=== PATIENT | male | born 1945 | race Caucasian/White ===

== ENCOUNTER 2017-11-18 19:10 | Emergency (ER) | payer MEDICARE, BC ==
[~2017-11-18] VITALS: Ht 182.9 cm; Wt 117.0 kg
[~2017-11-18 19:10] MED LIST: ACETAMINOPHEN325 M1 PO; ACIPHEX 20 MG T20 MG PO; ALLOPURINOL 30300 M1 PO; AMITRIPTYLINE H10 M3 PO; ARIXTRA; ARIXTRA SQ; ASPIRIN EC325 M1 PO; ASPIRIN EC325 MG PO; ASPIRIN325; ASPIRIN325 PO; ASPIRIN81 M2; B12 PO; CALCIUM 500 +1 EAC5 PO; CALCIUM CITRAT1 EAC4 PO; CASODEX 50 MG T50 M1 PO; CATAPRES-TTS 10.1 MG TD; CENTRUM SILVER1 EAC2 PO; CEPACOL SORE T1 EAC2 MM; CLONIDINE HCL0.1 MG PO; COLACE100 MG PO; CRESTOR10 MG PO; CRESTOR20 MG PO; CRESTOR5 MG PO; CYMBALTA30 MG PO; DEPO-PROVER150 MG/M1 INJECTION; DEPO-PROVERA; DITROPAN XL10 M1 PO; ELIQUIS5 MG PO; FISH OIL 1,001000 M1 PO; FLEXERIL PO; FLONASE 0.05%50 MCG NASAL; FOLBIC RF TABL1 EACH PO; LISINOPRIL20 MG PO; LISINOPRIL5 MG PO; LIVALO2 MG PO; LUNESTA2 MG PO; LUPRON DEPOT11.25 MG IM; LUPRON DEPOT45 MG; LUPRON IJ; MACROBID 100 M100 M1 PO; MIRALAX17 GM PO; MIRAPEX1 MG PO; MORPHINE SULFAT15 M3 PO; MORPHINE SULFAT30 M1 PO; MS CONTIN15 MG PO; MULTAQ400 MG PO; MULTIVITAMINS1 EAC7 PO; NEURONTIN 300300 M1 PO; NITROSTAT0.4 MG SL; NORVASC2.5 MG PO; OMEPRAZOLE40 MG PO; OXYCODONE HCL 55 MG PO; OXYIR5 MG; PAXIL20 MG PO; PERCOCET 10-321 EACH PO; PERCOCET 5-3251 EACH; PERCOCET 5-3251 EACH PO; PERCOCET PO; PRADAXA150 MG PO; PROSTATE CANCER; REMERON15 MG PO; ROUVASTATIN PO; RYTHMOL150 MG PO; SORINE 80 MG TA80 M1 PO; STOOL SOFTENER1 EAC2 PO; TOPROL XL25 MG PO; TRAMADOL HCL50 MG PO; TYLENOL325 MG PO; VITAMIN B12 PO; VITAMIN D1000 UNI1 PO; WARFARIN PO; XARELTO10 MG PO; XARELTO15 MG PO; XARELTO20 MG PO; [UNRECOGNIZED DRUG - OTHER] PO
[2017-11-18] MEDS ORDERED: KEFLEX500 M1 PO ×2 (19:26→20:33)
[2017-11-18] MEDS ORDERED: XARELTO20 MG PO (19:31)
[2017-11-18] MEDS ORDERED: CATAPRES0.1 MG PO (19:32)
[2017-11-18] MEDS ORDERED: IBUPROFEN 400400 M2 PO (19:32)
[2017-11-18] MEDS ORDERED: METFORMIN HCL500 MG PO (19:33)
[2017-11-18] MEDS ORDERED: LYRICA 75 MG CA75 MG PO (19:33)
[2017-11-18 20:49] VITALS: BP 157/78
== END 2017-11-18 20:50 | disposition home or self-care (01) ==
LOC: M.ERS 19:10
DX: S61.217A Laceration without foreign body of left little finger without damage to nail, initial encounter (principal); I10 Essential (primary) hypertension; M19.90 Unspecified osteoarthritis, unspecified site; G47.30 Sleep apnea, unspecified; K21.9 Gastro-esophageal reflux disease without esophagitis; M10.9 Gout, unspecified; Z87.891 Personal history of nicotine dependence; Z88.8 Allergy status to other drugs, medicaments and biological substances; Z96.642 Presence of left artificial hip joint; Z90.49 Acquired absence of other specified parts of digestive tract; Z96.651 Presence of right artificial knee joint; W26.8XXA Contact with other sharp object(s), not elsewhere classified, initial encounter; Y93.89 Activity, other specified; Y92.89 Other specified places as the place of occurrence of the external cause; Y99.8 Other external cause status

== ENCOUNTER → 2017-12-12 | Outpatient (CLI) | payer MEDICARE, BC ==
[~2017-12-12] MED LIST changes: +CATAPRES0.1 MG PO; +IBUPROFEN 400400 M2 PO; +KEFLEX500 M1 PO; +LYRICA 75 MG CA75 MG PO; +METFORMIN HCL500 MG PO
== END ==
LOC: M.ULTRA 07:34
DX: S39.81XA Other specified injuries of abdomen, initial encounter (principal); N28.1 Cyst of kidney, acquired; I10 Essential (primary) hypertension; I48.91 Unspecified atrial fibrillation; G47.33 Obstructive sleep apnea (adult) (pediatric); X58.XXXA Exposure to other specified factors, initial encounter; Y93.89 Activity, other specified; Y92.89 Other specified places as the place of occurrence of the external cause; Y99.8 Other external cause status; Z90.49 Acquired absence of other specified parts of digestive tract

== ENCOUNTER → 2018-07-17 | Outpatient (CLI) | payer BC ==
--- NOTE | 2018-07-17 15:49 | 2DMMODE ---
[place] [address] 2 D/M-MODE ECHOCARDIOGRAM Name: RADNEE HUMPHRIES Room: [facility]#: [id number] Admission: 07/17/18 Attend Phys: Katy Cortez Discharge: Date of : 41 Date of Service: 07/17/18 1548 Report #: [id number] THIS REPORT FOR: //name// APPROVED REPORT Study performed: 07/17/2018 13:50:00 EXAM: Comprehensive 2D, Doppler, and color-flow Echocardiogram Patient Location: Out-Patient BSA: 2.42 HR: 63 bpm BP: 132/52 mmHg Other Information Study Quality: Fair Indications Atrial Fibrillation Elevated BNP 2D Dimensions IVSd: 12.82 (7-11mm) LVOT Diam: 21.71 (18-24mm) LVDd: 51.25 mm PWd: 11.36 (7-11mm) Ascending Ao: 32.66 (22-36mm) LVDs: 33.40 (25-40mm) Aortic Root: 27.87 mm Volumes Left Atrial Volume (Systole) LA ESV Index: 23.70 mL/m2 Aortic Valve AoV Peak Willis.: 1.73 m/s AO Peak Gr.: 11.96 mmHg LVOT Max P.99 mmHg AO Mean Gr.: 6.50 mmHg LVOT Mean P.90 mmHg LVOT Max V: 1.00 m/s AO V2 VTI: 35.94 cm LVOT Mean V: 0.63 m/s NIGEL (VTI): 2.56 cm2 LVOT V1 VTI: 24.82 cm Mitral Valve MV Decel. Time: 169.90 ms MV E Max Willis.: 1.04 m/s MV PHT: 49.27 ms MVA (PHT): 4.47 [place]2 [place] [address] 2 D/M-MODE ECHOCARDIOGRAM Name: RANDEE HUMPHRIES Room: [facility]#: [id number] Admission: 07/17/18 Attend Phys: Katy Cortez Discharge: Date of : 41 Date of Service: 07/17/18 1548 Report #: [id number] TDI E/Lateral E': 10.40 E/Medial E': 11.56 Medial E' Willis.: 0.09 m/s Lateral E' Willis.: 0.10 m/s Pulmonary Valve PV Peak Willis.: 1.02 m/s PV Peak Gr.: 4.17 mmHg Tricuspid Valve RAP Estimate: 5.00 mmHg TR Peak Gr.: 28.92 mmHg RVSP: 33.92 mmHg PA Pressure: 33.92 mmHg Left Ventricle The left ventricle is normal size. There is normal LV segmental wall motion. Mild concentric left ventricular hypertrophy. Left ventricular systolic function is normal. The left ventricular ejection fraction is within the normal range. LVEF is 55-60%. The left ventricular diastolic function is normal. Right Ventricle The right ventricle is normal size. The right ventricular systolic function is normal. Atria The left atrium size is normal. The right atrium size is normal. Aortic Valve The Aortic valve is sclerotic. No aortic regurgitation is present. There is no aortic valvular stenosis. Mitral Valve Mitral valve leaflets are mildly thickened. Mild mitral regurgitation. No evidence of mitral valve stenosis. Tricuspid Valve The tricuspid valve is normal in structure. Mild tricuspid regurgitation. estimated pa pressure 40 mm Hg Pulmonic Valve Pulmonic valve is not well visualized. There is no pulmonic valvular regurgitation[place] [address] 2 D/M-MODE ECHOCARDIOGRAM Name: RANDEE HUMPHRIES Room: [facility]#: [id number] Admission: 07/17/18 Attend Phys: Katy Cortez Discharge: Date of : 41 Date of Service: 07/17/18 1548 Report #: [id number] The aortic root is normal in size. IVC is normal in size and collapses >50% with inspiration. Pericardium There is no pericardial effusion. <Conclusion> Mild concentric left ventricular hypertrophy. LVEF is 55-60%. The Aortic valve is sclerotic. Mild tricuspid regurgitation. estimated pa pressure 40 mm Hg Mild mitral regurgitation. <ELECTRONICALLY SIGNED> By: Luis Castillo MD, [facility] 07/17/18 1548 1548 1548 Luis Castillo MD, FAC /INF
== END ==
LOC: M.CRD 13:39
DX: I08.1 Rheumatic disorders of both mitral and tricuspid valves (principal); I48.91 Unspecified atrial fibrillation

== ENCOUNTER 2018-10-13 09:29 | Emergency (ER) | payer BC ==
[~2018-10-13] VITALS: Ht 180.3 cm; Wt 131.2 kg
[2018-10-13 09:49] LABS: ABSOLUTE EOSINOPHILS 0.2 thou/uL (0.0-0.7); ABSOLUTE LYMPHOCYTES 1.3 thou/uL (0.8-5.3); ABSOLUTE MONOCYTES 0.6 thou/uL (0.0-1.2); ABSOLUTE NEUTROPHILS 5.6 thou/uL (1.6-8.1); BASOPHILS 0.5 %; HEMATOCRIT 38.9 % (42.0-52.0); HEMOGLOBIN 12.7 gm/dL (14.0-18.0); LYMPHOCYTES 16.4 %; MCHC 32.6 g/dL (28.0-37.0); MCV 89.1 fL (80.0-100.0); MONOCYTES 8.4 %; NUCLEATED RBCS 0 /100WBC; PLATELET COUNT* 167 thou/uL (150-400); POLYS 72.7 %; RBC 4.37 mil/uL (4.50-6.00); WBC 7.6 thou/uL (4.0-11.0)
[2018-10-13 10:01] LABS: ANION GAP 9 mmol/L (7-16); BUN 10 mg/dL (7-18); CALCIUM 8.8 mg/dL (8.5-10.1); CHLORIDE 100 mmol/L (98-107); CO2 29 mmol/L (21-32); CREATININE 0.8 mg/dL (0.6-1.3); GLUCOSE 158 mg/dL (70-99); POTASSIUM 4.3 mmol/L (3.5-5.1); SODIUM 138 mmol/L (136-145)
[2018-10-13 10:12] LABS: APTT 40.1 Seconds (25.0-31.3); INR 1.4; PROTIME 14.5 Seconds (9.20-11.50)
[2018-10-13 10:15] LABS: ALBUMIN 3.5 g/dL (3.4-5.0); ALKALINE PHOSPHATASE 86 U/L (46-116); CK-MB MASS 1.7 ng/mL (<0.5-3.6); LIPASE 85 U/L (73-393); MAGNESIUM 1.9 mg/dL (1.8-2.4); NT-PRO BRAIN NAT PEPTIDE 2293 pg/mL (<300); SGOT 23 U/L (15-37); SGPT 23 U/L (30-65); TOTAL BILIRUBIN 0.5 mg/dL (<0.1-1.0); TOTAL PROTEIN 7.1 g/dL (6.4-8.2); TROPONIN-I LEVEL <0.06 ng/mL (<0.06)
[2018-10-13 12:18] VITALS: BP 146/92
--- NOTE | 2018-10-13 15:22 | EKG ---
[place] [address] ELECTROCARDIOGRAM REPORT Name: RANDEE HUMPHRIES Room: [facility]#: [id number] Admission: 10/13/18 Attend Phys: Discharge: 10/13/18 Date of : 41 Report #: [id number] THIS REPORT FOR: //name// 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 : 1945 Requested By: Sean Robb Order Number: [id number] MD: Luis Castillo Measurements Intervals [place] Rate: 61 P: [place]: QRS: 27 QRSD: 86 T: QT: 459 QTc: 463 Interpretive Statements Atrial fibrillation Nonspecific T abnormalities, lateral leads Baseline wander in lead(s) III Compared to ECG 12/18/2016 07:17:03 T-wave abnormality now present Electronically Signed On 10-13-2018 15:22:03 CDT by Luis Castillo [email or web address] <ELECTRONICALLY SIGNED> By: Luis Castillo MD, [facility] 10/13/18 1522 0934 Luis Castillo MD, [facility] /EPI
== END 2018-10-13 12:20 | disposition home or self-care (01) ==
LOC: M.ERS 09:29
PROVIDERS: Family Medicine
DX: R07.89 Other chest pain (principal); I10 Essential (primary) hypertension; M19.90 Unspecified osteoarthritis, unspecified site; I48.0 Paroxysmal atrial fibrillation; K21.9 Gastro-esophageal reflux disease without esophagitis; M10.9 Gout, unspecified; G47.30 Sleep apnea, unspecified; M54.9 Dorsalgia, unspecified; G89.29 Other chronic pain; Z96.642 Presence of left artificial hip joint; Z85.46 Personal history of malignant neoplasm of prostate; Z90.49 Acquired absence of other specified parts of digestive tract; Z87.891 Personal history of nicotine dependence; Z88.1 Allergy status to other antibiotic agents; Z96.653 Presence of artificial knee joint, bilateral

== ENCOUNTER → 2018-10-19 | Outpatient (CLI) | payer BC ==
[2018-10-19] VITALS (7 sets, daily range): BP systolic 132–158; BP diastolic 49–79
[~2018-10-19] MED LIST changes: +IRON325 PO
[2018-10-19 10:29] LABS: HEMATOCRIT 40.2 % (42.0-52.0); HEMOGLOBIN 13.2 gm/dL (14.0-18.0); MCH 29.2 pg (26.0-34.0); MCHC 32.9 g/dL (28.0-37.0); MCV 88.7 fL (80.0-100.0); MPV 8.9 fl. (7.2-11.1); RBC 4.53 mil/uL (4.50-6.00); WBC 7.5 thou/uL (4.0-11.0)
[2018-10-19 10:37] LABS: CALCIUM 8.8 mg/dL (8.5-10.1); CREATININE 0.8 mg/dL (0.6-1.3); POTASSIUM 4.6 mmol/L (3.5-5.1)
[2018-10-19 10:38] LABS: APTT 32.2 Seconds (25.0-31.3); INR 1.1; PROTIME 11.3 Seconds (9.20-11.50)
[2018-10-19 10:41] LABS: ALBUMIN 3.8 g/dL (3.4-5.0); TOTAL BILIRUBIN 0.4 mg/dL (<0.1-1.0); TOTAL PROTEIN 7.4 g/dL (6.4-8.2)
--- NOTE | 2018-10-19 13:06 | EKG ---
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: : 1945 Requested By: Cas Khouyr Order Number: [id number] Reading MD: Cas Khoury Measurements Intervals [place] Rate: 63 P: -33 LA: 87 QRS: 3 QRSD: 103 T: 32 QT: 471 QTc: 483 Interpretive Statements Sinus rhythm Atrial premature complex Short LA interval Nonspecific T-wave flattening Compared to ECG 10/13/2018 09:34:31 Atrial premature complex(es) now present Short LA interval now present Atrial fibrillation no longer present T-wave abnormality no longer present Electronically Signed On 10-19-2018 13:05:46 CDT by Cas Khoury [email or web address] <ELECTRONICALLY SIGNED> By: Cas Khoury MD, FAC 10/19/18 1305 1112 1112 Cas Khoury MD, [facility] /EPI
--- NOTE | 2018-10-20 08:49 | CARD ---
[address] [address] CARDIAC CATH REPORT Name: RANDEE HUMPHRIES [place] Room: [facility]#: [id number] Admission: 10/19/18 Attend Phys: Cas Khoury MD Discharge: Date of : 41 Report #: [id number] THIS REPORT FOR: //name// CC: Liang Khoury CARDIAC PROCEDURE INDICATION: Persistent atrial fibrillation. PROCEDURE: DC cardioversion. PROCEDURE DESCRIPTION: After informed consent was obtained, the patient was brought to the cardiac holding area. The patient was given intravenous Versed and fentanyl for conscious sedation. Once the patient was adequately sedated, he received a single biphasic shock of 300 joules. The patient remained in atrial fibrillation. The patient received a second biphasic shock of 360 joules converting to normal sinus rhythm. The patient tolerated the procedure well and without complication. IMPRESSION: 1. Persistent atrial fibrillation. 2. Successful direct current cardioversion to normal sinus rhythm. <ELECTRONICALLY SIGNED> By: Cas Khoury MD, FACC 10/20/18 0849 1319 0631Micmahad Khoury MD, FACC /nt
== END | disposition home or self-care (01) ==
LOC: M.CL 10:04 → M.CRD 11:30 → M.CL 11:30
PROVIDERS: Internal Medicine Cardiovascular Disease
DX: I48.1 Persistent atrial fibrillation (principal); I10 Essential (primary) hypertension; Z98.890 Other specified postprocedural states; Z86.73 Personal history of transient ischemic attack (TIA), and cerebral infarction without residual deficits; Z86.711 Personal history of pulmonary embolism; Z79.01 Long term (current) use of anticoagulants; Z79.899 Other long term (current) drug therapy; Z88.8 Allergy status to other drugs, medicaments and biological substances

== ENCOUNTER 2018-10-25 17:53 | Emergency (ER) | payer BC ==
[~2018-10-25] VITALS: Ht 180.3 cm; Wt 126.1 kg
[2018-10-25 19:18] LABS: ABSOLUTE BASOPHILS 0.1 thou/uL (0.0-0.2); ABSOLUTE EOSINOPHILS 0.1 thou/uL (0.0-0.7); ABSOLUTE LYMPHOCYTES 2.1 thou/uL (0.8-5.3); ABSOLUTE MONOCYTES 0.7 thou/uL (0.0-1.2); ABSOLUTE NEUTROPHILS 4.2 thou/uL (1.6-8.1); BASOPHILS 0.7 %; EOSINOPHILS 2.1 %; HEMATOCRIT 37.4 % (42.0-52.0); HEMOGLOBIN 12.3 gm/dL (14.0-18.0); LYMPHOCYTES 28.7 %; MCH 29.3 pg (26.0-34.0); MCV 88.8 fL (80.0-100.0); MONOCYTES 10.2 %; MPV 8.7 fl. (7.2-11.1); NUCLEATED RBCS 0 /100WBC; PLATELET COUNT* 188 thou/uL (150-400); POLYS 58.3 %; RBC 4.21 mil/uL (4.50-6.00); RDW-CV 15.9 % (10.5-14.5); WBC 7.2 thou/uL (4.0-11.0)
[2018-10-25 19:26] LABS: ANION GAP 9 mmol/L (7-16); BUN 18 mg/dL (7-18); CALCIUM 8.3 mg/dL (8.5-10.1); CHLORIDE 105 mmol/L (98-107); CO2 27 mmol/L (21-32); CREATININE 0.8 mg/dL (0.6-1.3); GLUCOSE 150 mg/dL (70-99); POTASSIUM 4.2 mmol/L (3.5-5.1); SODIUM 141 mmol/L (136-145)
[2018-10-25 19:35] LABS: ALBUMIN 3.2 g/dL (3.4-5.0); ALKALINE PHOSPHATASE 81 U/L (46-116); SGOT 38 U/L (15-37); SGPT 27 U/L (30-65); TOTAL BILIRUBIN 0.3 mg/dL (<0.1-1.0); TOTAL PROTEIN 6.6 g/dL (6.4-8.2); TROPONIN-I LEVEL <0.06 ng/mL (<0.06)
[2018-10-25 19:44] VITALS: BP 139/66
--- NOTE | 2018-10-26 11:35 | EKG ---
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1945 Requested By: Matthew Diaz Order Number: [id number] MD: Rick Mares Measurements Intervals [place] Rate: 72 P: [place]: QRS: 0 QRSD: 94 T: 18 QT: 449 QTc: 492 Interpretive Statements Atrial fibrillation Borderline ST elevation, lateral leads Borderline prolonged QT interval Compared to ECG 10/19/2018 11:12:44 ST (T wave) deviation now present Sinus rhythm no longer present Atrial premature complex(es) no longer present Short [place] interval no longer present T-wave abnormality no longer present Electronically Signed On 10-26-2018 11:35:17 CDT by Rick Mares [email or web address] <ELECTRONICALLY SIGNED> By: Rick Mares MD, [facility] 10/26/18 1135 1828 1828 Rick Mares MD, FAC /EPI
== END 2018-10-25 19:45 | disposition home or self-care (01) ==
LOC: M.ERS 17:53
PROVIDERS: Physician Assistant
DX: R60.0 Localized edema (principal); I48.91 Unspecified atrial fibrillation; I10 Essential (primary) hypertension; M19.90 Unspecified osteoarthritis, unspecified site; I48.0 Paroxysmal atrial fibrillation; M10.9 Gout, unspecified; Z96.642 Presence of left artificial hip joint; Z90.49 Acquired absence of other specified parts of digestive tract; Z96.652 Presence of left artificial knee joint; Z87.891 Personal history of nicotine dependence; Z88.8 Allergy status to other drugs, medicaments and biological substances

== ENCOUNTER → 2018-11-16 | Outpatient (CLI) | payer BC ==
[~2018-11-16] MED LIST changes: +AUGMENTIN 875-1 EACH PO; +COZAAR 25 MG TA25 M1 PO; +KLOR-CON 1010 MEQ PO; +KLOR-CON M2020 MEQ PO; +LASIX 20 MG TAB20 MG PO; +NORVASC10 MG PO; +PACERONE 200 M200 M1 PO
== END ==
LOC: M.RAD 14:35
DX: K59.00 Constipation, unspecified (principal)

== ENCOUNTER 2018-11-17 09:55 | Inpatient (IN) | payer BC ==
[~2018-11-17] VITALS: Ht 180.3 cm; Wt 133.8 kg
[~2018-11-17 09:55] MED LIST changes: -AUGMENTIN 875-1 EACH PO; -COZAAR 25 MG TA25 M1 PO; -KLOR-CON 1010 MEQ PO; -KLOR-CON M2020 MEQ PO; -LASIX 20 MG TAB20 MG PO; -PACERONE 200 M200 M1 PO
[2018-11-17 10:30] VITALS: BP 172/96
--- NOTE | 2018-11-17 13:34 | EKG ---
[place] [address] ELECTROCARDIOGRAM REPORT Name: RANDEE HUMPHRIES Room: [address] ADM IN [facility]#: [id number] Admission: 11/17/18 Attend Phys: Rick Mares MD Discharge: Date of : 41 Report #: [id number] THIS REPORT FOR: //name// [facility] Test Date: 2018-11-17 Test Time: 10:37:54 Pat Name: RANDEE HUMPHRIES Department: Room: [address] Gender: M [employer] Member: : 1945 Requested By: Brenda Galvez Order Number: [id number] Verenice MD: Luis Castillo Measurements Intervals [place] Rate: 66 P: [place]: QRS: 20 QRSD: 98 T: 26 QT: 463 QTc: 486 Interpretive Statements Atrial fibrillation Borderline T abnormalities, inferior leads Compared to ECG 10/25/2018 18:28:36 no change Electronically Signed On 11-17-2018 13:34:37 CDT by Luis Castillo [email or web address] <ELECTRONICALLY SIGNED> By: Luis Castillo MD, [facility] 11/17/18 1334 1037 1037 Luis Castillo MD, FAC /EPI
[2018-11-17] MEDS ORDERED: LASIX 20 MG TAB20 MG PO (14:09)
[2018-11-17] MEDS ORDERED: KLOR-CON M2020 MEQ PO (14:09)
[2018-11-17] MEDS ORDERED: KLOR-CON 1010 MEQ PO (14:10)
[2018-11-17 15:32] LABS: HEMATOCRIT 39.1 % (42.0-52.0); HEMOGLOBIN 12.9 gm/dL (14.0-18.0); MCH 29.3 pg (26.0-34.0); MCHC 32.9 g/dL (28.0-37.0); MCV 88.9 fL (80.0-100.0); MPV 9.1 fl. (7.2-11.1); RBC 4.41 mil/uL (4.50-6.00); RDW-CV 16.3 % (10.5-14.5); WBC 8.1 thou/uL (4.0-11.0)
[2018-11-17 15:41] VITALS: BP 151/65
[2018-11-17 15:54] LABS: ALBUMIN 3.6 g/dL (3.4-5.0); CALCIUM 8.9 mg/dL (8.5-10.1); CREATININE 0.9 mg/dL (0.6-1.3); POTASSIUM 3.5 mmol/L (3.5-5.1); TOTAL BILIRUBIN 0.7 mg/dL (<0.1-1.0); TOTAL PROTEIN 7.1 g/dL (6.4-8.2)
[2018-11-17 20:00] VITALS: BP 125/58
[2018-11-18] VITALS: BP 126/52
[2018-11-18 05:11] VITALS: BP 145/50
[2018-11-18 08:00] VITALS: BP 168/81
[2018-11-18 12:00] VITALS: BP 165/72
[2018-11-18 16:00] VITALS: BP 144/66
[2018-11-18 20:00] VITALS: BP 158/67
[2018-11-19] VITALS: BP 130/58
[2018-11-19 04:00] VITALS: BP 141/42
[2018-11-19 08:00] VITALS: BP 156/72
[2018-11-19 12:34] VITALS: BP 140/54
[2018-11-19 16:04] VITALS: BP 180/81
[2018-11-19 20:00] VITALS: BP 134/75
--- NOTE | 2018-11-19 20:44 | OP ---
[facility] [address] [place] [address] OPERATIVE REPORT Name: RANDEE HUMPHRIES Room: [address] IN .R.#: [id number] Admission: 11/17/18 Attend Phys: Rick Mares MD Discharge: Date of : 41 Report #: [id number] THIS REPORT FOR: //name// CC: Rick Monroe DATE OF SERVICE: 11/17/2018 PREOPERATIVE DIAGNOSIS: Urinary retention. 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 PROCEDURES PERFORMED: 1. Cystoscopy with dilation of vesicle neck contracture. 2. Complex Patel catheter placement. SURGEON: Ziggy Mejia M.D. BRIEF HISTORY: The patient is a 73-year-old male who was admitted to [facility] for management of atrial fibrillation. He has a history of prostate cancer status post radical retropubic prostatectomy followed by radiation therapy, and he is followed by Urology secondary to a history of urethral stricture disease. The patient described urinary symptoms on admission consistent with retention, likely secondary to recurrent stricture disease. Given the above, urologic consultation was obtained. An attempt was made at placing both a catheter and a filiform without success. Given the above, consent was obtained from the patient's for bedside cystoscopy with possible urethral dilation and catheter placement. The risks of the procedure including the risks of bleeding, infection, damage to surrounding structures were reviewed. PROCEDURE IN DETAIL: The risks and benefits of surgery were discussed with the patient and he wished to proceed. His genitalia were prepped and draped in the usual sterile fashion. A flexible cystoscope was advanced under direct vision and irrigation into the anterior urethra. There were no anterior urethral abnormalities identified. As the bladder neck was approached, there was noted to be significant scar tissue and initially, there was no discernible opening to the bladder. A 0.035 sensor wire was then advanced through the cystoscope and the center of the scarring was probed with the wire until eventually the wire was able to be advanced across an extremely small opening until it was able to be coiled within the bladder. The cystoscope was removed leaving the wire in place. Amplatz dilating set was obtained, and the urethra was dilated over the wire from 6-Equatorial Guinean to 18-Equatorial Guinean. After dilation, a 16-Equatorial [place]inean [place] tip catheter was able to be advanced over the wire and into the bladder with some difficulty. The catheter balloon was inflated with 10 mL [place] [address] OPERATIVE REPORT Name: RANDEE HUMPHRIES Room: [address]#: [id number] Admission: 11/17/18 Attend Phys: Rick Mares MD Discharge: Date of : 41 Report #: [id number] the wire was removed. There was return of over a liter of clear yellow urine following catheter placement. The patient tolerated the procedure well. The plan will be to maintain. The catheter until the patient can follow up with his urologist at for further management of his vesicle neck contracture. COMPLICATIONS: None. ESTIMATED BLOOD LOSS: Minimal. INTRAVENOUS FLUIDS: None. SPECIMENS: None. DRAINS: A 16-Equatorial [place] tip urethral catheter. FINDINGS: 1. Severe vesicle neck contracture with a pinpoint opening, dilated to 18-Equatorial Guinean over a wire. 2. Successful placement of 16-Equatorial [place] tip catheter over the wire. 3. Greater than 1 liter of clear yellow urine returned following catheter placement. <ELECTRONICALLY SIGNED> By: Ziggy Mejia MD 11/19/18 2044 2145 [id number] Mejia MD /nt
[2018-11-20] VITALS (17 sets, daily range): BP systolic 128–164; BP diastolic 60–94
--- NOTE | 2018-11-20 14:46 | EKG ---
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1945 Requested By: Brenda Galvez Order Number: [id number] Reading MD: Cas Khoury Measurements Intervals [place] Rate: 68 P: SD: QRS: -1 QRSD: 90 T: 32 QT: 695 QTc: 740 Interpretive Statements Atrial fibrillation Borderline T abnormalities, inferior leads Prolonged QT interval Compared to ECG 11/17/2018 10:37:54 Prolonged QT interval now present T-wave abnormality still present Electronically Signed On 11-20-2018 14:45:55 CDT by Cas Khoury [email or web address] <ELECTRONICALLY SIGNED> By: Cas Khoury MD, [facility] 11/20/18 1445 0636 Cas Khoury MD, [facility] /EPI
--- NOTE | 2018-11-20 14:54 | EKG ---
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 11/20/18 1453 1119 1119 Cas Khoury MD, [facility] /EPI
--- NOTE | 2018-11-20 14:55 | EKG ---
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1945 Requested By: Fer Cornelius Order Number: [id number] Verenice MD: Cas Khoury Measurements Intervals [place] Rate: 61 P: -5 FL: 67 QRS: 2 QRSD: 104 T: 37 QT: 630 QTc: 635 Interpretive Statements Sinus rhythm Atrial premature complex Short [place] interval Nonspecific T abnrm, anterolateral leads Prolonged QT interval Compared to ECG 11/17/2018 10:37:54 Atrial premature complex(es) now present Short [place] interval now present Prolonged QT interval now present Atrial fibrillation no longer present T-wave abnormality no longer present Electronically Signed On 11-20-2018 14:55:43 CDT by Cas Khoury [email or web address] <ELECTRONICALLY SIGNED> By: Cas Khoury MD, FACC 11/20/18 1455 1402 1402 Cas Khoury MD, [facility] /EPI
[2018-11-20] MEDS ORDERED: AUGMENTIN 875-1 EACH PO (14:56)
[2018-11-20] MEDS ORDERED: TYLENOL325 MG PO (14:59)
[2018-11-20] MEDS ORDERED: PACERONE 200 M200 M1 PO (15:28)
[2018-11-20] MEDS ORDERED: COZAAR 25 MG TA25 M1 PO (16:00)
--- NOTE | 2018-11-21 12:55 | CARD ---
[address] [address] CARDIAC CATH REPORT Name: RANDEE HUMPHRIES Room: [address] IN .R.#: [id number] Admission: 11/17/18 Attend Phys: Rick Mares MD Discharge: 11/20/18 Date of : 41 Report #: [id number] THIS REPORT FOR: //name// CC: RICK MARES [facility] Rick Monroe DATE OF SERVICE: 11/20/2018 CATHETERIZATION REPORT PROCEDURE: DC cardioversion. TECHNIQUE: The patient was brought to the cardiovascular area. He demonstrated atrial fibrillation with a mildly bradycardic response. Systemic pressure was normal. He received 4 mg of Versed and 50 mcg of fentanyl. After satisfactory degree of sedation was achieved, with the patches applied in AP location, we proceeded with DC cardioversion in a synchronized fashion with 360 joules delivered x 1 with the patient reverting from atrial fibrillation to sinus mechanism at a normal rate. He was allowed to awaken gradually from his sedation with normal saturations throughout. IMPRESSION: Successful DC cardioversion with rhythm reverting from atrial fibrillation to a sinus mechanism. <ELECTRONICALLY SIGNED> By: Fer Cornelius MD, [facility] 11/21/18 1255 1355 0131Fer Cornelius MD, FACC /nt
== END 2018-11-20 16:57 | disposition home or self-care (01) | DRG 699 ==
LOC: M.2W 09:55
PROVIDERS: Registered Nurse; ADMIT Internal Medicine Cardiovascular Disease
PROC: 0T7C8DZ Dilation of Bladder Neck with Intraluminal Device, Via Natural or Artificial Opening Endoscopic (ICD-10-PCS; principal; 2018-11-17)
PROC: 5A2204Z Restoration of Cardiac Rhythm, Single (ICD-10-PCS; 2018-11-20)
DX: N32.0 Bladder-neck obstruction (principal); Z68.41 Body mass index [BMI] 40.0-44.9, adult; E66.01 Morbid (severe) obesity due to excess calories; I48.0 Paroxysmal atrial fibrillation; I25.10 Atherosclerotic heart disease of native coronary artery without angina pectoris; R33.9 Retention of urine, unspecified; I10 Essential (primary) hypertension; E78.5 Hyperlipidemia, unspecified; M19.90 Unspecified osteoarthritis, unspecified site; G47.33 Obstructive sleep apnea (adult) (pediatric); E11.9 Type 2 diabetes mellitus without complications; C61 Malignant neoplasm of prostate; Z79.01 Long term (current) use of anticoagulants; Z88.8 Allergy status to other drugs, medicaments and biological substances

== ENCOUNTER → 2018-12-18 | Outpatient (CLI) | payer BC ==
[~2018-12-18] MED LIST changes: +AUGMENTIN 875-1 EACH PO; +COZAAR 25 MG TA25 M1 PO; +KLOR-CON 1010 MEQ PO; +KLOR-CON M2020 MEQ PO; +LASIX 20 MG TAB20 MG PO; +PACERONE 200 M200 M1 PO
[2018-12-18 08:43] LABS: HEMATOCRIT 39.4 % (42.0-52.0); MCH 29.2 pg (26.0-34.0); MCHC 33.1 g/dL (28.0-37.0); MCV 88.1 fL (80.0-100.0); MPV 8.7 fl. (7.2-11.1); RBC 4.47 mil/uL (4.50-6.00); RDW-CV 15.4 % (10.5-14.5); WBC 6.5 thou/uL (4.0-11.0)
[2018-12-18 08:51] LABS: CREATININE 0.9 mg/dL (0.6-1.3); POTASSIUM 4.4 mmol/L (3.5-5.1)
[2018-12-18 08:56] LABS: ALBUMIN 3.8 g/dL (3.4-5.0); TOTAL BILIRUBIN 0.6 mg/dL (<0.1-1.0); TOTAL PROTEIN 7.2 g/dL (6.4-8.2)
== END ==
LOC: M.LAB 08:25 → M.CT 09:30
PROVIDERS: Internal Medicine Cardiovascular Disease
DX: I48.91 Unspecified atrial fibrillation (principal); I25.10 Atherosclerotic heart disease of native coronary artery without angina pectoris; I70.0 Atherosclerosis of aorta; Z88.8 Allergy status to other drugs, medicaments and biological substances; Z79.899 Other long term (current) drug therapy

== ENCOUNTER → 2018-12-26 | Outpatient (CLI) | payer BC ==
[2018-12-26] VITALS (7 sets, daily range): BP systolic 133–143; BP diastolic 54–64
--- NOTE | 2018-12-26 11:24 | TEE ---
[place] [address] TRANSESOPHAGEAL ECHOCARDIOGRAM Name: IZAIAHRenoRANDEE Room: [facility]#: [id number] Admission: 12/26/18 Attend Phys: Cas Khoury, Discharge: Date of : 41 Date of Service: 12/26/18 1124 Report #: [id number] THIS REPORT FOR: //name// ADDENDUM APPROVED REPORT Study performed: 12/26/2018 09:22:46 EXAM: Transesophageal Echocardiogram Patient Location: Out-Patient Status: routine BSA: 2.31 HR: 54 bpm BP: 133/64 mmHg Rhythm: Atrial Fibrillation Other Information Study Quality: Good Indications Atrial Fibrillation Pre- ablation Echo Enhancing Agent Indication: Rule out Shunt Agent(s) / Amount(s) Used: Agitated Saline 10 cc Procedure After obtaining informed consent, patient underwent transesophageal echo in the [employer]. Type of Sedation : Conscious Sedation Sedation was administered by Bindu Rojas RN. Sedation start time: 940 Case end Time: 949 Sedation was achieved intravenously with: Versed (4) Fentanyl (100) Transesophageal probe was inserted and advanced into esophagus without difficulty by Cas Khoury MD, FACC. Echo enhancement indication: R/O Septal defect. Echo enhancement agent administered: Agitated Saline The CHICHI was performed without complications. Throughout the procedure, the blood pressure, pulse oximetry, cardiac rhythm, and rate were monitored. The patient tolerated the procedure without adverse effects. Recovery from conscious sedation was uneventful and [place] [address] TRANSESOPHAGEAL ECHOCARDIOGRAM Name: RANDEE HUMPHRIES [id number] Admission: 12/26/18 Attend Phys: Cas Khoury, Discharge: Date of : 41 Date of Service: 12/26/18 1124 Report #: [id number] Left Ventricle The left ventricle is normal size. There is normal LV segmental wall motion. There is normal left ventricular wall thickness. Left ventricular systolic function is normal. LVEF is 60-65%. Right Ventricle The right ventricle is normal size. The right ventricular systolic function is normal. Atria Left atrium is mildly dilated. No thrombus is visualized in the left atrium or appendage. Small left to right shunt is noted by color flow. The right atrium size is normal. Aortic Valve Mild aortic valve sclerosis. No aortic regurgitation is present. There is no aortic valvular stenosis. Mitral Valve The mitral valve is normal in structure. Mild mitral regurgitation. No evidence of mitral valve stenosis. Tricuspid Valve The tricuspid valve is normal in structure. Mild tricuspid regurgitation. Pulmonic Valve The pulmonary valve is normal in structure. There is no pulmonic valvular regurgitation. Great Vessels The aortic root is normal in size. Atherosclerotic plaque is present in the descending aorta and aortic arch. Pericardium There is no pericardial effusion. <Conclusion> The left ventricle is normal size. There is normal left ventricular wall thickness. Left ventricular systolic function is normal. LVEF is 60-65%. There is normal LV segmental wall motion. Small left to right shunt is noted by color flow. Left atrium [place] [address] TRANSESOPHAGEAL ECHOCARDIOGRAM Name: RANDEE HUMPHRIES [place] Room: [facility]#: [id number] Admission: 12/26/18 Attend Phys: Cas Khoury, Discharge: Date of : 41 Date of Service: 12/26/18 1124 Report #: [id number] No thrombus is visualized in the left atrium or appendage. Mild mitral regurgitation. Mild tricuspid regurgitation. Atherosclerotic plaque is present in the descending aorta and aortic arch. <ELECTRONICALLY SIGNED> By: Cas Khoury MD, FACC 12/26/18 1124 23 23 Cas Khoury MD, FACC /INF
== END | disposition home or self-care (01) ==
LOC: M.CL 08:44
DX: I48.91 Unspecified atrial fibrillation (principal); I08.1 Rheumatic disorders of both mitral and tricuspid valves; I70.0 Atherosclerosis of aorta; I10 Essential (primary) hypertension; Z86.73 Personal history of transient ischemic attack (TIA), and cerebral infarction without residual deficits; Z85.46 Personal history of malignant neoplasm of prostate; Z88.8 Allergy status to other drugs, medicaments and biological substances

== ENCOUNTER 2019-03-25 11:40 | Emergency (ER) | payer BC ==
[~2019-03-25] VITALS: Ht 180.3 cm; Wt 109.8 kg
[2019-03-25] MEDS ORDERED: BENADRYL25 MG PO (11:59)
[2019-03-25] MEDS ORDERED: FLOMAX0.4 MG PO (12:06)
[2019-03-25 12:22] LABS: ABSOLUTE BASOPHILS 0.1 thou/uL (0.0-0.2); ABSOLUTE EOSINOPHILS 0.1 thou/uL (0.0-0.7); ABSOLUTE LYMPHOCYTES 1.7 thou/uL (0.8-5.3); ABSOLUTE MONOCYTES 0.6 thou/uL (0.0-1.2); ABSOLUTE NEUTROPHILS 7.5 thou/uL (1.6-8.1); BASOPHILS 1.2 %; HEMATOCRIT 37.4 % (42.0-52.0); HEMOGLOBIN 12.6 gm/dL (14.0-18.0); LYMPHOCYTES 17.3 %; MCH 30.8 pg (26.0-34.0); MCHC 33.6 g/dL (28.0-37.0); MCV 91.7 fL (80.0-100.0); MONOCYTES 5.9 %; MPV 8.7 fl. (7.2-11.1); NUCLEATED RBCS 0 /100WBC; PLATELET COUNT* 197 thou/uL (150-400); POLYS 74.6 %; RBC 4.08 mil/uL (4.50-6.00); RDW-CV 18.1 % (10.5-14.5); WBC 10.1 thou/uL (4.0-11.0)
[2019-03-25 12:27] LABS: URINE BILIRUBIN NEGATIVE (Negative); URINE BLOOD 2+ (Negative); URINE CLARITY CLEAR; URINE COLOR YELLOW; URINE GLUCOSE-RANDOM NEGATIVE (Negative); URINE KETONES NEGATIVE (Negative); URINE NITRITE-REFLEX NEGATIVE (Negative); URINE PROTEIN NEGATIVE (Negative); URINE SPECIFIC GRAVITY 1.015 (1.005-1.030); URINE UROBILINOGEN 0.2 E.U./dl (0.2-1.0)
[2019-03-25 12:30] LABS: URINE LEUKOCYTES-REFLEX 2+ (Negative)
[2019-03-25 12:36] LABS: CASTS None Seen /LPF (None Seen); CRYSTALS None Seen /LPF (None Seen); MUCUS 0-3 Light strn/LPF (None Seen); SQUAMOUS 0-3 Few /LPF (0-3); URINE RBC 3-10 Few /HPF (0-2)
[2019-03-25 12:36] LABS: ALBUMIN 3.6 g/dL (3.4-5.0); CALCIUM 8.4 mg/dL (8.5-10.1); CREATININE 1.1 mg/dL (0.6-1.3); POTASSIUM 3.9 mmol/L (3.5-5.1); TOTAL BILIRUBIN 0.4 mg/dL (<0.1-1.0)
[2019-03-25] MEDS ORDERED: MACROBID 100 M100 MG PO (12:40)
[2019-03-25 12:54] VITALS: BP 142/61
== END 2019-03-25 12:54 | disposition home or self-care (01) ==
LOC: M.ERS 11:40
PROVIDERS: Personal Emergency Response Attendant
DX: N39.0 Urinary tract infection, site not specified (principal); N39.43 Post-void dribbling; I10 Essential (primary) hypertension; I48.0 Paroxysmal atrial fibrillation; K21.9 Gastro-esophageal reflux disease without esophagitis; M19.90 Unspecified osteoarthritis, unspecified site; G47.30 Sleep apnea, unspecified; Z85.46 Personal history of malignant neoplasm of prostate; Z96.642 Presence of left artificial hip joint; Z90.49 Acquired absence of other specified parts of digestive tract; Z96.653 Presence of artificial knee joint, bilateral; Z87.891 Personal history of nicotine dependence; Z88.8 Allergy status to other drugs, medicaments and biological substances

== ENCOUNTER 2019-10-18 09:37 | Observation (INO) | payer BC ==
[2019-10-18] VITALS (8 sets, daily range): BP systolic 146–180; BP diastolic 59–77
[~2019-10-18] VITALS: Ht 185.4 cm; Wt 116.6 kg
[~2019-10-18 09:37] MED LIST changes: +BENADRYL25 MG PO; +FLOMAX0.4 MG PO; +FUROSEMIDE 20 M20 MG; +HYDROXYZINE HCL25 M2 PO; +LASIX 40 MG TAB40 MG PO; +MACROBID 100 M100 MG PO; +MACRODANTIN50 M1 PO; +MELATONIN 10 M1 EACH PO; +NORVASC 2.5 MG2.5 M1 PO; +PROTONIX40 M2 PO
[2019-10-18 10:13] LABS: HEMATOCRIT 34.9 % (42.0-52.0); HEMOGLOBIN 11.8 gm/dL (14.0-18.0); MCH 29.5 pg (26.0-34.0); MCHC 33.9 g/dL (28.0-37.0); MPV 9.2 fl. (7.2-11.1); RBC 4.01 mil/uL (4.50-6.00); RDW-CV 15.1 % (10.5-14.5); WBC 7.2 thou/uL (4.0-11.0)
[2019-10-18 10:30] LABS: APTT 27.8 Seconds (25.0-31.3); PROTIME 10.7 Seconds (9.20-11.50)
[2019-10-18 10:31] LABS: ALBUMIN 3.6 g/dL (3.4-5.0); ALKALINE PHOSPHATASE 81 U/L (46-116); ANION GAP 7 mmol/L (7-16); BUN 18 mg/dL (7-18); CALCIUM 8.2 mg/dL (8.5-10.1); CHLORIDE 102 mmol/L (98-107); CHOLESTEROL 176 mg/dL (<200); CO2 29 mmol/L (21-32); CREATININE 0.9 mg/dL (0.6-1.3); GLUCOSE 138 mg/dL (70-99); HDL CHOLESTEROL 66 mg/dL (>40); LDL CHOLESTEROL 95 mg/dL (<100); POTASSIUM 3.8 mmol/L (3.5-5.1); SGOT 24 U/L (15-37); SGPT 22 U/L (30-65); SODIUM 138 mmol/L (136-145); TC:HDL 2.7 Ratio (Not establshd); TOTAL BILIRUBIN 0.4 mg/dL (<0.1-1.0); TOTAL PROTEIN 7.2 g/dL (6.4-8.2); TRIGLYCERIDE 77 mg/dL (<150); VLDL 15 mg/dL (<40)
[2019-10-18 10:33] LABS: SERUM ASSESSMENT Clear
[2019-10-18 13:47] LABS: CK-MB MASS 3.2 ng/mL (<0.5-3.6); TROPONIN-I LEVEL 0.07 ng/mL (<0.06)
--- NOTE | 2019-10-18 14:19 | EKG ---
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 : 1945 Requested By: Cas Khoury Order Number: [id number] Verenice MD: Fer Cornelius Measurements Intervals [place] Rate: 55 P: -36 [place]: 86 QRS: -5 QRSD: 101 T: 4 QT: 472 QTc: 452 Interpretive Statements Sinus rhythm Short [place] interval Compared to ECG 11/20/2018 14:02:31 Atrial premature complex(es) no longer present Prolonged QT interval no longer present Electronically Signed On 10-18-2019 14:17:04 CDT by Fer Cornelius [email or web address] <ELECTRONICALLY SIGNED> By: Fer Cornelius MD, [facility] 10/18/19 1417 1036 1036 Fer Cornelius MD, [facility] /EPI
--- NOTE | 2019-10-18 14:19 | EKG ---
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1945 Requested By: Cas Khoury Order Number: [id number] Reading MD: Fer Cornelius Measurements Intervals [place] Rate: 59 P: -54 [place]: 85 QRS: -1 QRSD: 96 T: 17 QT: 447 QTc: 443 Interpretive Statements Sinus or ectopic atrial rhythm Short [place] interval Compared to ECG 11/20/2018 14:02:31 Ectopic atrial rhythm now suggested Atrial premature complex(es) no longer present Prolonged QT interval no longer present Electronically Signed On 10-18-2019 14:17:51 CDT by Fer Cornelius [email or web address] <ELECTRONICALLY SIGNED> By: Fer Cornelius MD, [facility] 10/18/19 1417 1315 1315 Fer Cornelius MD, FAC /EPI
--- NOTE | 2019-10-18 17:03 | H ---
[place] [address] HISTORY AND PHYSICAL Name: RANDEE HUMPHRIES Room: [address] M.R.#: [id number] Admission: 10/18/19 Attend Phys: Cas Khoury MD Discharge: Date of : 41 Report #: [id number] THIS REPORT FOR: //name// cc: Liang Monroe MD, Matthew W. MD ~ THIS REPORT FOR: //name// CC: Fer Khoury INDICATION: Unstable angina. HISTORY OF PRESENT ILLNESS: The patient is a very pleasant 74-year-old known to have at least nonocclusive coronary disease by remote catheterization. Cardiac risk factors include hypertension and dyslipidemia as well as type 2 diabetes mellitus. He has a history of sick sinus syndrome and paroxysmal atrial fibrillation. He is status post atrial fibrillation/ablation with good result. 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 The patient presents for left heart catheterization, coronary angiography, and possible intervention. PAST MEDICAL HISTORY: 1. Coronary artery disease. 2. Paroxysmal atrial fibrillation, status post ablation. 3. Hypertension. 4. Hyperlipidemia. 5. Obstructive sleep apnea. 6. Type 2 diabetes mellitus. 7. Sick sinus syndrome. 8. Pulmonary embolus. 9. Urethral strictures, self-catheterization twice weekly. 10. Back surgery, multiple. 11. Cholecystectomy. 12. Hip surgery. 13. Knee surgery. 14. Neck surgery. 15. Prostate surgery with radiation for prostate cancer. 16. Total shoulder arthroplasty. 17. Trigger finger release. CURRENT MEDICATIONS: Allopurinol 300 mg daily, amlodipine 2.5 mg daily, Benadryl 25 mg each day at bedtime p.r.n., Flonase nasal spray 1 [place] [address] HISTORY AND PHYSICAL Name: RANDEE HUMPHRIES [place] [address]: [address]#: [id number] Admission: 10/18/19 Attend Phys: Cas Khoury MD Discharge: Date of : 43 Report #: [id number] nostril daily, Lasix 20 mg 2 tablets p.r.n. weight gain and edema, Atarax 25 mg b.i.d. p.r.n., losartan 50 mg daily, melatonin 10 mg nightly, morphine 30 mg extended release capsule t.i.d., Macrodantin 50 mg capsules 1 capsule weekly, Protonix 40 mg daily, GlycoLax 17 grams by mouth daily, potassium chloride 20 mEq b.i.d., Xarelto 20 mg daily, Crestor 10 mg daily. ALLERGIES: CELEBREX, WHICH CAUSES REDNESS AND SWELLING. FAMILY HISTORY: Positive for coronary artery disease in the patient's father. The patient's mother had a stroke. SOCIAL HISTORY: The patient quit smoking many years ago. He drinks alcohol rarely. PHYSICAL EXAMINATION: VITAL SIGNS: Stable. Blood pressure was 124/72, pulse 64 and regular. GENERAL: This is a pleasant gentleman who is in no distress. Mood and affect appropriate. HEENT: Extraocular muscles intact. Mucous membranes are moist. NECK: Shows no jugular venous distention. There are no carotid bruits. CHEST: Reveals clear lung beal without wheezes or rales. CARDIOVASCULAR: Reveals a regular rhythm. I do not appreciate gallop or murmur. ABDOMEN: Reveals a soft abdomen. Bowel sounds present. EXTREMITIES: Shows no edema. SKIN: Dry. Peripheral pulses palpable. IMPRESSION AND RECOMMENDATIONS: 1. Chest pain consistent with unstable angina. The patient is being brought in for elective cardiac catheterization and possible intervention. His Xarelto has been held. 2. Dyslipidemia. Continue current statin agent with goal LDL of 70 or less. 3. Hypertension. Blood pressure appears to be adequately controlled on current cardiac regimen. We will make adjustments as needed. 4. Type 2 diabetes mellitus per primary physician. 5. Paroxysmal atrial fibrillation, status post ablation, presently maintaining sinus rhythm. The patient follows with Electrophysiology. <ELECTRONICALLY SIGNED> By: Cas Khoury MD, FACC 10/18/19 1703 1422 1520Micmahad Khoury MD, FACC /nt
[2019-10-19] VITALS: BP 157/73
[2019-10-19 04:00] VITALS: BP 170/79
[2019-10-19 04:53] LABS: HEMATOCRIT 37.7 % (42.0-52.0); HEMOGLOBIN 12.7 gm/dL (14.0-18.0); MCHC 33.6 g/dL (28.0-37.0); MCV 86.2 fL (80.0-100.0); MPV 9.7 fl. (7.2-11.1); RBC 4.37 mil/uL (4.50-6.00); RDW-CV 15.2 % (10.5-14.5); WBC 8.2 thou/uL (4.0-11.0)
[2019-10-19 05:17] LABS: ALBUMIN 3.7 g/dL (3.4-5.0); CALCIUM 8.5 mg/dL (8.5-10.1); CK-MB MASS 3.3 ng/mL (<0.5-3.6); POTASSIUM 3.8 mmol/L (3.5-5.1); TOTAL BILIRUBIN 0.4 mg/dL (<0.1-1.0); TOTAL PROTEIN 7.6 g/dL (6.4-8.2); TROPONIN-I LEVEL 0.22 ng/mL (<0.06)
[2019-10-19 08:00] VITALS: BP 162/79
[2019-10-19] MEDS ORDERED: EFFIENT10 MG PO (09:02)
[2019-10-19 12:14] VITALS: BP 146/61
--- NOTE | 2019-10-19 12:38 | CARD ---
[address] [address] CARDIAC CATH REPORT Name: RANDEE HUMPHRIES Room: [address] Carl M.R.#: [id number] Admission: 10/18/19 Attend Phys: Cas Khoury MD Discharge: Date of : 43 Report #: [id number] THIS REPORT FOR: //name// cc: Liang Monroe MD, Matthew W. MD ~ APPROVED REPORT Study performed: 10/18/2019 10:29:26 Patient Details Patient Status: Out-Patient Room #: The patient is a 74 year-old male Event Personnel Cesar Melgar RTR Monitor, Brant Barboza RN RN, Dena Pop RTR Scrub, Cas Khoury Needle Loom Tender, Fede Coleman HOST/HOSTESS HEAD Monitor Procedures Performed Left Heart Cath w/or w/o Coronaries [id number] [facility] Art Access - R femoral artery* [facility] w/wo Plasty Single LAD 204204 [place] [address] w/wo Plasty Single RCA [id number] Hemostasis w/ Angioseal Admission/Lab Medications/Medications given during procedure Lidocaine Subcut 20 ml, Midazolam (Versed) IV 1 mg, Fentanyl IV 25 mcg, Angiomax IV 40.8 ml per hr, Aspirin PO 324 mg, Effient PO 60 mg, Angiomax IV 17 ml Procedure Narrative The patient was brought electively to the Cardiac Catheterization Laboratory and was prepped and draped in a sterile manner. The right femoral was infiltrated with 2% Lidocaine subcutaneous anesthesia. A [place] 6 FR sheath was inserted into the right femoral artery. Coronary angiography was performed using coronary diagnostic catheters. The right coronary system was accessed and visualized with a Diagnostic JR4 6Fr catheter. The left coronary system was accessed and visualized with a Diagnostic JL4 6Fr catheter. The left ventricle was accessed and visualized with a Diagnostic Pigtail Straight 6Fr catheter. Pre-demployment femoral angiogram was performed . Closure device was deployed with a 6 Fr Angioseal. The patient tolerated the procedure well and there were no complications associated with the procedure. There was no hematoma[place] [address] CARDIAC CATH REPORT Name: RANDEE HUMPHRIES [address]: [address]#: [id number] Admission: 10/18/19 Attend Phys: Cas Khoury MD Discharge: Date of : 43 Report #: [id number] Sedation start time: 1105 Case end Time: 1220 Fentanyl 25 mcg Versed 1 mg Fluoro Time: 22.6 minutes Dose: DAP 187543 cGycm2 5220.24 mGy Contrast Type and Amount: Visipaque 240 ml Diagnostic Cath Left Main The left main coronary artery is free of significant disease. LAD The LAD has a 50% ostial tapering followed by a 70% proximal narrowing after a focus of aneurysmal dilatation. The mid LAD immediately after this portion has a focal 90% narrowing noted. The distal vessel is free of significant disease. Diagonal 1 A first diagonal branch is free of significant disease. Diagonal 2 Free of significant disease Diagonal 3 Free of significant disease Circumflex The circumflex is a large vessel that is free of significant disease. OM1 Moderate-sized vessel that is free of significant disease. OM2 Small vessel that is free of significant disease. OM3 Moderate-sized vessel that is free of significant disease. Right Coronary The right coronary artery has a 75% ostial narrowing. The proximal vessel is mildly plaqued. R PDA A small in caliber PDA is free of significant disease. Left Ventriculography The left ventricle is normal in size with normal contractility. The left ventricular ejection fraction is estimated to be 65%. Hemodynamics The aortic pressure is 154/60 mmHg with a mean of 98 mmHg. The left ventricular pressure is 146/6 mmHg with a mean of mmHg. The left ventricular end diastolic pressure is 22 mmHg. PCI Technique Lesion Percutaneous coronary intervention was performed on the proximal left anterior descending artery segment. The lesion stenosis prior to intervention was 90% with ANDRY 3 flow. A 6FR XB 3.5 100CM Guide Catheter was used to engage the Left ostium. A BMW 190cm Interventional Guidewire [place] [address] CARDIAC CATH REPORT Name: RANDEE HUMPHRIES [place] Room: [address] Carl M.R.#: [id number] Admission: 10/18/19 Attend Phys: Cas Khoury MD Discharge: Date of : 43 Report #: [id number] BALLOON DILATION A Balloon catheter NC Euphora 2.5x12 was inserted and inflated up to 16.00atm for 19seconds. Additional Inflation: 24.00atm for 15seconds. Additional Inflation: 16.00atm for 12seconds. STENT DEPLOYMENT A drug-eluting stent [place] RX Stent 2.67g08ay was inserted and inflated up to 12.00atm for 11seconds. Additional Inflation: 14.00atm for 9seconds. Additional Inflation: 15.00atm for 13seconds. POST STENT DEPLOYMENT BALLOON DILATION A Balloon catheter NC Euphora 3.0x12 was inserted and inflated up to 12.00atm for 8seconds. Final angiography reveals 0 % stenosis with ANDRY 3 flow. PCI Technique Lesion 2 Percutaneous Coronary Intervention was performed on the proximal right coronary artery. The lesion stenosis prior to intervention was 75% with ANDRY 3 flow. A 6F JR 4.0 Guide Catheter was used to engage the Right ostium. A BMW 190cm Interventional Guidewire was used to cross the lesion. Balloon Dilation A Balloon catheter NC Euphora 2.75x8 was inserted and inflated up to 18.00atm for 13seconds. Additional Inflation: 22.00atm for 14seconds. Stent Deployment A drug-eluting stent Darryn RX Stent 3.0X8mm was inserted and inflated up to 14.00atm for 15seconds. Additional Inflation: 16.00atm for 11seconds. Additional Inflation: 16.00atm for 8seconds. Post Stent Deployment Balloon Dilation A Balloon catheter NC Euphora 3.0 x 8 was inserted and inflated up to 14.00atm for 10seconds. Additional Inflation: 17.00atm for 10seconds. Final angiography reveals 10 % stenosis with ANDRY 3 flow. Comments The PCI to the ostial proximal right coronary artery was technically complex by virtue of the aorto ostial location with distortion of the ostium and calcification at that site [address] [place] [address] CARDIAC CATH REPORT Name: RANDEE HUMPHRIES Room: [address]#: [id number] Admission: 10/18/19 Attend Phys: Cas Khoury MD Discharge: Date of : 43 Report #: [id number] Conclusion 1. Two-vessel coronary artery disease as outlined above with significant stenosis involving the proximal to mid LAD and ostial right coronary artery. 2. Normal left ventricular systolic function. 3. Mildly elevated left ventricular end-diastolic pressure. 4. Successful PCI at the site of 90% proximalmid LAD stenosis with 0% residual narrowing and ANDRY-3 flow to the distal vessel 5. Successful PCI at the site of aorto- ostial 75% right coronary stenosis with 10% residual narrowing and ANDRY-3 flow to the distal vessel Recommendations Cardiac Risk Reduction Program Aggressive Medical Therapy 1. Continue aggressive risk factor modification. 2. Percutaneous coronary intervention to the proximal to mid left into descending coronary artery and ostial right coronary artery. Medications Administered Aspirin (any) Prasugrel Diagnostic Cath Approved by: Cas Khoury MD Date/Time: 10/18/2019 16:54:21 <ELECTRONICALLY SIGNED> By: Fer Cornelius MD, FACC 10/19/19 1235 1235 1235Fer Cornelius MD, FACC /INF
--- NOTE | 2019-10-19 16:17 | EKG ---
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 Second Assistant: YELITZA : 1945 Requested By: Cas Khoury Order Number: [id number] Reading MD: Fer Cornelius Measurements Intervals [place] Rate: 64 P: -35 NC: 83 QRS: -17 QRSD: 102 T: 8 QT: 443 QTc: 457 Interpretive Statements Sinus rhythm Short NC interval Borderline left axis deviation Compared to ECG 10/18/2019 13:15:47 No significant change Electronically Signed On 10-19-2019 16:15:52 CDT by eFr Cornelius [email or web address] <ELECTRONICALLY SIGNED> By: Fer Cornelius MD, [facility] 10/19/19 1615 0544 0544 Fer Cornelius MD, [facility] /EPI
== END 2019-10-19 13:07 | disposition home or self-care (01) ==
LOC: M.CL 09:37 → M.TBA-CV 11:21 → M.2W 14:25
PROVIDERS: ADMIT Internal Medicine Cardiovascular Disease
DX: I25.110 Atherosclerotic heart disease of native coronary artery with unstable angina pectoris (principal); I10 Essential (primary) hypertension; E78.5 Hyperlipidemia, unspecified; E11.9 Type 2 diabetes mellitus without complications; I48.0 Paroxysmal atrial fibrillation; G47.33 Obstructive sleep apnea (adult) (pediatric); D68.69 Other thrombophilia

== ENCOUNTER 2019-10-25 15:38 | Observation (INO) | payer BC ==
[~2019-10-25] VITALS: Ht 185.4 cm; Wt 117.3 kg
[2019-10-25 15:38] VITALS: BP 137/60
[~2019-10-25 15:38] MED LIST changes: +EFFIENT10 MG PO
[2019-10-25] MEDS ORDERED: NEURONTIN 300M300 M2 PO (16:32)
[2019-10-25] MEDS ORDERED: KLOR-CON 1010 MEQ PO (16:33)
[2019-10-25 16:40] LABS: ABSOLUTE EOSINOPHILS 0.3 thou/uL (0.0-0.7); ABSOLUTE LYMPHOCYTES 1.9 thou/uL (0.8-5.3); ABSOLUTE MONOCYTES 0.7 thou/uL (0.0-1.2); ABSOLUTE NEUTROPHILS 4.6 thou/uL (1.6-8.1); BASOPHILS 0.5 %; EOSINOPHILS 3.9 %; HEMATOCRIT 37.4 % (42.0-52.0); HEMOGLOBIN 12.8 gm/dL (14.0-18.0); LYMPHOCYTES 25.2 %; MCH 29.2 pg (26.0-34.0); MCHC 34.1 g/dL (28.0-37.0); MCV 85.6 fL (80.0-100.0); MONOCYTES 9.5 %; MPV 9.4 fl. (7.2-11.1); NUCLEATED RBCS 0 /100WBC; PLATELET COUNT* 201 thou/uL (150-400); POLYS 60.9 %; RBC 4.36 mil/uL (4.50-6.00); RDW-CV 15.4 % (10.5-14.5); WBC 7.6 thou/uL (4.0-11.0)
[2019-10-25 16:50] LABS: CALCIUM 8.4 mg/dL (8.5-10.1); POTASSIUM 3.6 mmol/L (3.5-5.1)
[2019-10-25 17:01] LABS: ALBUMIN 3.7 g/dL (3.4-5.0); TOTAL BILIRUBIN 0.2 mg/dL (<0.1-1.0); TOTAL PROTEIN 7.4 g/dL (6.4-8.2)
[2019-10-25 21:00] VITALS: BP 166/70
[2019-10-25 21:15] VITALS: BP 193/86
[2019-10-26] VITALS: BP 166/81
[2019-10-26 04:00] VITALS: BP 112/61
--- NOTE | 2019-10-26 04:35 | NUR ---
RECEIVED PT FROM ER PER CART AT APPROX 2114. PT IS AWAKE AND ORIENTED X4. 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 PT DENIES CHEST PAIN BUT C/O HIP AND LEG PAIN PARTIALLY RELIEVED BY PAIN MEDS GIVEN PER JUL. ADMISSION ASSESSMENT DONE CHARTED. PT ORIENTED ON ROOM SET UP AND ON THE USE OF CALL LIGHT. NO ACUTE CHANGES OVERNIGHT. PT IS CLOSELY MONITORED.
[2019-10-26 08:00] VITALS: BP 136/60
--- NOTE | 2019-10-26 10:29 | EKG ---
[place] [address] ELECTROCARDIOGRAM REPORT Name: RANDEE HUMPHRIES Room: [address]#: [id number] Admission: 10/25/19 Attend Phys: Spencer Woodward Discharge: Date of : 41 Date of Service: 10/25/19 1542 Report #: [id number] THIS REPORT FOR: //name// [facility] ED Test Date: 2019-10-25 Test Time: 15:42:18 Pat Name: RANDEE HUMPHRIES Department: Room: [facility] Gender: M Radio Broadcaster: EDDIE : 1945 Requested By: Antionette Deluca Order Number: [id number] MD: Luis Castillo Measurements Intervals [place] Rate: 74 P: -33 MD: 95 QRS: 10 QRSD: 101 T: 76 QT: 385 QTc: 428 Interpretive Statements Sinus rhythm Short MD interval septal infarct, old Compared to ECG 10/19/2019 05:44:05 no change Electronically Signed On 10-26-2019 10:27:20 CDT by Luis Castillo [email or web address] <ELECTRONICALLY SIGNED> By: Luis Castillo MD, FAC 10/26/19 1027 1542 1542 Luis Castillo MD, [facility] /EPI
[2019-10-26] MEDS ORDERED: EFFIENT10 MG PO (14:00)
[2019-10-26] MEDS ORDERED: XARELTO20 MG PO (14:00)
[2019-10-26] MEDS ORDERED: ASA81BEC PO (15:08)
[2019-10-26] MEDS ORDERED: NITROSTAT0.4 M1 SUBLING (15:11)
[2019-10-26 15:12] VITALS: BP 136/60
--- NOTE | 2019-10-26 15:34 | CON ---
[address] [address] CONSULTATION Name: RANDEE HUMPHRIES Room: [address] M.RCampblel#: [id number] Admission: 10/25/19 Attend Phys: Yolis Benito Discharge: Date of : 43 Report #: [id number] THIS REPORT FOR: //name// cc: Liang Monroe MD, Matthew W. MD ~ THIS REPORT FOR: //name// CC: Liang Woodward DATE OF SERVICE: 10/26/2019 CARDIOLOGY CONSULTATION HISTORY OF PRESENT ILLNESS: The patient is a 74-year-old white male who I was asked to see in the hospital today after he complained of chest pain. The patient has an extensive past medical history. He has had multiple hospitalizations here at [facility] including 2010 when he was noted to be in atrial flutter. Echocardiogram is unremarkable. Lexiscan Cardiolite showed no ischemia. He was anticoagulated with Pradaxa and started on Rythmol. He was electively admitted here to [facility] and underwent cardioversion. He was readmitted 2 months later with recurrent atrial flutter. He developed nausea on Rythmol, which was discontinued. He had recurrent atrial flutter and was readmitted in November with repeat cardioversion. He was started on Multaq. He was seen again in 07/2011 with chest pain. He underwent cardiac catheterization by Dr. Cas Khoury. Ejection fraction of 65%. There was a 70% narrowing of the LAD. Right coronary had distal 70% stenosis. He was seen by Dr. Joe Mendez in 2011 and he had coronary ultrasound which showed the LAD lesion was not that severe. He was started on sotalol. He was then discharged home and was switched from Pradaxa to Xarelto. He had a repeat heart catheterization in 2013 and underwent a CHICHI and was then cardioverted. He was continued on Eliquis. He was seen by Dr. Khoury a year ago in 09/2018 with atrial fibrillation. He was cardioverted back to sinus rhythm. He required a repeat cardioversion last November. Recently, the patient complained of chest pain. Dr. Cornelius performed a cardiac catheterization last week here at [facility] from the right femoral artery. The LAD had 50% ostial narrowing, aneurysmal dilatation and a 70% stenosis. There is a 90% narrowing in the mid LAD. The circumflex had no significant disease. The right coronary had a 75% ostial narrowing. Ejection fraction 65%. Dr. Cornelius then placed a stent in the proximal LAD. He then placed a stent in the right coronary artery. He was started on Effient and discharged 5 days ago. After the patient was discharged, he did not tow picker his Effient. He then came to the Emergency Room last night complaining of intermittent chest pain. He describes a dull ache in his chest, not related to exertion or meals. There is no radiation of the pain. Denies shortness of breath, diaphoresis, nausea. He came to the [place] [address] CONSULTATION Name: IZAIAHRenoRANDEE Mcgowan Room: [address] Carl Guardado#: [id number] Admission: 10/25/19 Attend Phys: Yolis eBnito Discharge: Date of : 41 Report #: [id number] PAST MEDICAL HISTORY: He has had several back surgeries, prostate cancer, knee surgery, hip surgery, shoulder surgery, hypertension, diabetes. CURRENT MEDICATIONS: Consists of Protonix, amlodipine, allopurinol, losartan, Neurontin, Crestor, Xarelto, Lasix. ALLERGIES: HE HAS AN ALLERGY TO CELEBREX. FAMILY HISTORY: Brother, heart attack. SOCIAL HISTORY: He is . He and his live in [place], retired from [employer]. Quit smoking years ago, rarely drinks alcohol. REVIEW OF SYSTEMS: No history of stroke or asthma. He has a hiatal hernia. No liver disease, no kidney disease, prostate cancer. No chronic skin condition. No psychiatric illness. PHYSICAL EXAMINATION: GENERAL: Revealed an elderly male, lying in bed, appeared in no distress. VITAL SIGNS: He had a blood pressure of 110/60, pulse is 80, he is afebrile. HEENT: He was anicteric. Conjunctivae pink. Mucous membranes are moist. NECK: Supple. CHEST: Clear to auscultation. Bilateral carotid bruits are noted. CARDIAC: Regular rate and rhythm without rub or murmur. ABDOMEN: Soft. EXTREMITIES: Had no edema. SKIN: Warm and dry. NEUROLOGIC: Nonfocal. RADIOLOGICAL DATA: His ECG showed a sinus rhythm with septal Q-waves, nonspecific ST-segment changes. LABORATORY DATA: Sodium 138, BUN of 19, creatinine 1.0. His troponin is 0.13, it was 0.22 last week following placement of stents. His white blood cell count 7.6, hemoglobin 12.8. He had a chest x-ray that showed no acute abnormality. He actually had a CT scan of the chest performed last week that showed calcification of the aorta, no aneurysm or dissection, coronary calcifications. No pulmonary embolus. IMPRESSION AND RECOMMENDATIONS: 1. Recent stents. Atypical chest pain. Troponin appears to be trending downward. I think it is reasonable to discharge the patient at this time on Effient and aspirin. 2. History of atrial fibrillation. The patient is on amiodarone and Xarelto. 3. Hypertension. The patient is on a calcium devonet, clonidine, ARB. [address] [address] CONSULTATION Name: RANDEE HUMPHRIES [place] Room: [address] ElliCampbell#: [id number] Admission: 10/25/19 Attend Phys: Yolis Benito Discharge: Date of : 41 Report #: [id number] 4. Hyperlipidemia. The patient is on a statin drug. 5. Chronic back pain. 6. Sleep apnea. 7. History of prostate cancer. <ELECTRONICALLY SIGNED> By: Luis Castillo MD, [facility] 10/26/19 1534 0836 0947Daviyolis Castillo MD, [facility] /nt
--- NOTE | 2019-10-26 16:00 | NUR ---
ASSUMED PT CARE AT 0700, PT A&O X4, VSS, RA, NETWORK INTERNSHIP TRACING SINUS RHYTHM, UP AD ASHLEY. PT WAS SEEN BY DR JUSTICE WHO TOLD PT HE COULD BE DISCHARGED. PT BECAME VERY UPSET WHEN THIS NURSE EXPLAINED TO HIM THAT HE HAD TO BE SEEN AND DISCHARGED BY HOSPITALIST. DR GUNDERSON NOTIFIED PT UPSET AND THRETENING TO LEAVE AMA DUE TO NOT WANTING TO WAIT. PT STATED HE WOULD "NOT BE COMING BACK TO THIS HOSPITAL" BECAUSE OF THE SITUATION. PT RE-EDUCATED ON IMPORTANCE OF BEING SEEN BY HOSPITALIST WELL CARDIOLOGY. PT DISCHARGED AT APPROX 1555, EDUCATED ON ALL DISCHARGE INSTRUCTIONS INCLUDING MEDICATIONS AND FOLLOW UP APPOINTMENTS. NETWORK INTERNSHIP AND IV REMOVED, HOURLY ROUNDING COMPLETED.
== END 2019-10-26 15:55 | disposition home or self-care (01) ==
LOC: M.ERS 15:38 → M.2W 20:25 → M.TBA-ER 20:25 → M.2W 20:25
PROVIDERS: Personal Emergency Response Attendant; ADMIT Internal Medicine
DX: R07.89 Other chest pain (principal); I10 Essential (primary) hypertension; I48.0 Paroxysmal atrial fibrillation; K21.9 Gastro-esophageal reflux disease without esophagitis; M54.9 Dorsalgia, unspecified; G89.29 Other chronic pain; Z87.891 Personal history of nicotine dependence; Z85.46 Personal history of malignant neoplasm of prostate; G47.30 Sleep apnea, unspecified

== ENCOUNTER 2019-12-04 09:43 | Emergency (ER) | payer BC ==
[~2019-12-04] VITALS: Ht 180.3 cm; Wt 121.1 kg
[~2019-12-04 09:43] MED LIST changes: +ASA81BEC PO; +NEURONTIN 300M300 M2 PO; +NITROSTAT0.4 M1 SUBLING
[2019-12-04] MEDS ORDERED: ISOSORBIDE MONO30 M1 PO (09:52)
[2019-12-04 10:22] LABS: ABSOLUTE EOSINOPHILS 0.2 thou/uL (0.0-0.7); ABSOLUTE LYMPHOCYTES 1.7 thou/uL (0.8-5.3); ABSOLUTE MONOCYTES 0.5 thou/uL (0.0-1.2); ABSOLUTE NEUTROPHILS 4.4 thou/uL (1.6-8.1); BASOPHILS 0.5 %; EOSINOPHILS 2.6 %; HEMATOCRIT 35.9 % (42.0-52.0); HEMOGLOBIN 12.2 gm/dL (14.0-18.0); LYMPHOCYTES 24.4 %; MCH 28.9 pg (26.0-34.0); MCHC 33.9 g/dL (28.0-37.0); MCV 85.2 fL (80.0-100.0); MONOCYTES 7.7 %; NUCLEATED RBCS 0 /100WBC; PLATELET COUNT* 179 thou/uL (150-400); POLYS 64.8 %; RBC 4.21 mil/uL (4.50-6.00); RDW-CV 15.1 % (10.5-14.5); WBC 6.8 thou/uL (4.0-11.0)
[2019-12-04 10:32] LABS: APTT 29.5 Seconds (25.0-31.3); CALCIUM 8.5 mg/dL (8.5-10.1); CREATININE 1.2 mg/dL (0.6-1.3); INR 1.1; POTASSIUM 4.2 mmol/L (3.5-5.1); PROTIME 11.8 Seconds (9.20-11.50)
[2019-12-04 10:45] LABS: ALBUMIN 3.7 g/dL (3.4-5.0); CK-MB MASS 2.7 ng/mL (<0.5-3.6); MAGNESIUM 2.1 mg/dL (1.8-2.4); TOTAL BILIRUBIN 0.3 mg/dL (<0.1-1.0); TOTAL PROTEIN 7.2 g/dL (6.4-8.2)
[2019-12-04 11:40] VITALS: BP 128/63
--- NOTE | 2019-12-04 15:25 | EKG ---
[place] [address] ELECTROCARDIOGRAM REPORT Name: RANDEE HUMPHRIES Room: [facility]#: [id number] Admission: 12/04/19 Attend Phys: Discharge: 12/04/19 Date of : 41 Date of Service: 12/04/19 0950 Report #: [id number] THIS REPORT FOR: //name// [facility] ED Test Date: 2019-12-04 Test Time: 09:50:57 Pat Name: RANDEE HUMPHRIES Department: Room: Gender: Outbound Telemarketing Representative: [facility] : 1945 Requested By: Sean Robb Order Number: [id number] MD: Cas Khoury Measurements Intervals [place] Rate: 58 P: TX: QRS: 0 QRSD: 106 T: 10 QT: 445 QTc: 438 Interpretive Statements Atrial fibrillation Baseline wander in lead(s) V1,V2 Compared to ECG 10/25/2019 15:42:18 Sinus rhythm no longer present Short TX interval no longer present Myocardial infarct finding no longer present Electronically Signed On 12-04-2019 15:25:33 CDT by Cas Khoury [email or web address] <ELECTRONICALLY SIGNED> By: Cas Khoury MD, FAC 12/04/19 1525 0950 0950 Cas Khoury MD, [facility] /EPI
--- NOTE | 2019-12-05 08:44 | CON ---
[address] [address] CONSULTATION Name: RANDEE HUMPHRIES [id number] Admission: 12/04/19 Attend Phys: Discharge: 12/04/19 Date of : 41 Report #: [id number] THIS REPORT FOR: //name// cc: Liang Monroe MD, Matthew W. MD ~ THIS REPORT FOR: //name// CC: Sean Khoury DATE OF SERVICE: 12/04/2019 CARDIOLOGY CONSULT INDICATION: Recurrent chest pain. HISTORY OF PRESENT ILLNESS: The patient is a very pleasant 74-year-old gentleman who is well known to myself. He has a history of coronary artery disease with recent percutaneous coronary intervention and stenting to the proximal LAD and ostial right coronary arteries. The patient presented to the Emergency Room this morning with intermittent chest discomfort throughout the night. He was taking sublingual nitroglycerin with partial relief. He was recently started on isosorbide mononitrate. The patient remains on Xarelto 20 mg daily and Effient 10 mg daily. He has had no bleeding problems. The pain was midsternal in location without significant radiation. He denied any significant diaphoresis or shortness of breath with the pain. EKG shows atrial flutter with controlled ventricular response rate. I do not appreciate acute ST or T-wave abnormalities. Cardiac enzymes are unremarkable. At the time of interview, the patient is stable. PAST MEDICAL HISTORY: Significant for; 1. Coronary artery disease with recent intervention as outlined above. 2. Sick sinus syndrome with paroxysmal atrial fibrillation/flutter. 3. Hypertension. 4. Dyslipidemia. 5. Obstructive sleep apnea. 6. Type 2 diabetes mellitus. 7. Remote history of pulmonary embolus. 8. Urethral strictures. 9. Back surgery on multiple occasions. 10. Cholecystectomy. 11. Hip surgery. 12. [place] [address] CONSULTATION Name: RANDEE HUMPHRIES Room: [facility]#: [id number] Admission: 12/04/19 Attend Phys: Discharge: 12/04/19 Date of : 41 Report #: [id number] 13. Neck surgery. 14. Prostate surgery with radiation for prostate cancer. 15. Total shoulder arthroplasty. 16. Trigger finger release. ALLERGIES: CELEBREX. HOME MEDICATIONS: Allopurinol 300 mg daily, amlodipine 10 mg daily, Benadryl 25 mg q. 4 hours p.r.n., Flonase nasal spray daily, furosemide 40 mg b.i.d., gabapentin 300 mg t.i.d., hydroxyzine 25 mg daily, Imdur 60 mg daily, losartan 50 mg daily, melatonin 10 mg as needed, morphine sulfate 15 mg t.i.d. p.r.n., Macrodantin 50 mg weekly, Nitrostat 0.4 mg sublingual p.r.n., Protonix 40 mg daily, potassium chloride 10 mEq 2 tablets daily, Effient 10 mg daily, Xarelto 20 mg daily. FAMILY HISTORY: Positive for coronary artery disease in the patient's father. The patient's mother had a stroke. SOCIAL HISTORY: The patient quit smoking many years ago. Drinks alcohol rarely. PHYSICAL EXAMINATION: VITAL SIGNS: Blood pressure 128/63, pulse 59 and regular. GENERAL: This is a pleasant gentleman, in no distress. Mood and affect appropriate. HEENT: Extraocular muscles intact. Mucous membranes are moist. NECK: Shows no jugular venous distention. There are no carotid bruits. CHEST: Reveals clear lung beal without wheezes or rales. CARDIAC: Reveals a regular rhythm. I do not appreciate gallop or murmur. ABDOMEN: Reveals normal bowel sounds. The abdomen is soft, nontender. EXTREMITIES: Shows no edema. SKIN: Dry. LABORATORY DATA: A 12-lead EKG shows what appears to be a slow atrial flutter without significant ST-segment abnormality. Labs are reviewed. Electrolytes are within normal limits. EGFR is 59. Troponins less than 0.06. IMPRESSION AND RECOMMENDATIONS: 1. Chest discomfort in a patient with recent intervention and history of coronary artery disease. He is scheduled for elective catheterization next week. Continue Effient and Xarelto at current doses. Add aspirin 81 mg daily. Proceed with catheterization as scheduled. 2. Atrial arrhythmias. The patient chronically anticoagulated, rate controlled. No changes made at this time. 3. Hypertension. Blood pressure adequately controlled on current regimen. 4. Dyslipidemia. Continue [place] [address] CONSULTATION Name: RANDEE HUMPHRIES Room: [facility] RUTHANN Guardado#: [id number] Admission: 12/04/19 Attend Phys: Discharge: 12/04/19 Date of : 41 Report #: [id number] From a cardiac standpoint, the patient appears stable. He has ruled out for myocardial infarction. Okay to discharge. He is to contact the office if he has further chest discomfort. <ELECTRONICALLY SIGNED> By: Cas Khoury MD, FACC 12/05/19 0844 1145 1200Micmahad Khoury MD, FACC /nt
== END 2019-12-04 11:40 | disposition home or self-care (01) ==
LOC: M.ERS 09:43
PROVIDERS: Family Medicine
DX: I10 Essential (primary) hypertension (principal); E87.5 Hyperkalemia; R07.89 Other chest pain; I48.91 Unspecified atrial fibrillation; M19.90 Unspecified osteoarthritis, unspecified site; K21.9 Gastro-esophageal reflux disease without esophagitis; G47.30 Sleep apnea, unspecified; Z96.642 Presence of left artificial hip joint; Z90.49 Acquired absence of other specified parts of digestive tract; Z96.653 Presence of artificial knee joint, bilateral; Z88.6 Allergy status to analgesic agent; Z85.46 Personal history of malignant neoplasm of prostate; Z87.891 Personal history of nicotine dependence

== ENCOUNTER 2019-12-06 10:40 | Observation (INO) | payer BC ==
[2019-12-06] VITALS (10 sets, daily range): BP systolic 119–155; BP diastolic 52–66
[~2019-12-06] VITALS: Ht 152.4 cm; Wt 122.9 kg
--- NOTE | ~2019-12-06 | H ---
[address] [address] HISTORY AND PHYSICAL Name: RANDEE HUMPHRIES Room: [address] Carl MCampbellRCampbell#: [id number] Admission: 12/06/19 Attend Phys: Cas Khoury MD Discharge: 12/07/19 Date of : 41 Report #: [id number] THIS REPORT FOR: //name// cc: Liang Monroe MD, Matthew W. MD ~ THIS REPORT FOR: //name// For History and Physical please refer to the consultation note in the patient's medical record. By: [facility]2Medical Records Staff [facility] /IGOR
[~2019-12-06 10:40] MED LIST changes: +ISOSORBIDE MONO30 M1 PO
[2019-12-06 11:23] LABS: ABSOLUTE EOSINOPHILS 0.1 thou/uL (0.0-0.7); ABSOLUTE LYMPHOCYTES 1.9 thou/uL (0.8-5.3); ABSOLUTE MONOCYTES 0.7 thou/uL (0.0-1.2); ABSOLUTE NEUTROPHILS 4.6 thou/uL (1.6-8.1); BASOPHILS 0.3 %; EOSINOPHILS 1.4 %; HEMOGLOBIN 12.2 gm/dL (14.0-18.0); LYMPHOCYTES 26.1 %; MCH 28.7 pg (26.0-34.0); MCHC 33.9 g/dL (28.0-37.0); MCV 84.9 fL (80.0-100.0); MONOCYTES 9.2 %; MPV 9.2 fl. (7.2-11.1); NUCLEATED RBCS 0 /100WBC; PLATELET COUNT* 193 thou/uL (150-400); RBC 4.24 mil/uL (4.50-6.00); WBC 7.2 thou/uL (4.0-11.0)
[2019-12-06 11:30] LABS: CALCIUM 8.7 mg/dL (8.5-10.1); CREATININE 1.1 mg/dL (0.6-1.3)
[2019-12-06 11:38] LABS: APTT 28.2 Seconds (25.0-31.3); INR 1.1; PROTIME 11.3 Seconds (9.20-11.50)
[2019-12-06 11:43] LABS: ALBUMIN 3.7 g/dL (3.4-5.0); TOTAL BILIRUBIN 0.3 mg/dL (<0.1-1.0); TOTAL PROTEIN 7.3 g/dL (6.4-8.2)
--- NOTE | 2019-12-06 14:36 | NUR ---
REBEKAH PROJECT ADMINISTRATOR CALLED TAKING PT TO PROJECT ADMINISTRATOR FOR LEFT HESRT [facility]
--- NOTE | 2019-12-06 16:50 | EKG ---
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: [facility] : 1945 Requested By: Antionette Deluca Order Number: [id number] MD: Luis Castillo Measurements Intervals [place] Rate: 65 P: [place]: QRS: -8 QRSD: 118 T: -41 QT: 440 QTc: 458 Interpretive Statements Atrial fibrillation Nonspecific intraventricular conduction delay Nonspecific T abnormalities, inferior leads Baseline wander in lead(s) III Compared to ECG 12/04/2019 09:50:57 no change Electronically Signed On 12-06-2019 16:50:49 CDT by Luis Castillo [email or web address] <ELECTRONICALLY SIGNED> By: Luis Castillo MD, [facility] 12/06/19 1650 1045 1045 Luis Castillo MD, [facility] /EPI
--- NOTE | 2019-12-06 18:30 | CARD ---
[address] [address] CARDIAC CATH REPORT Name: IZAIAHRenoRANDEE Mcgowan Room: [address] M.R.#: [id number] Admission: 12/06/19 Attend Phys: Cas Khoury MD Discharge: Date of : 43 Report #: [id number] THIS REPORT FOR: //name// cc: Liang Monroe MD, Matthew W. MD ~ APPROVED REPORT Study performed: 12/06/2019 13:53:50 Patient Details The patient is a 74 year-old male Event Personnel Cas Khoury Technical Solutions Consultant, Brant Barboza RN Tool Radial Drill Press Set Up Operator, Dylan Cantu CONCERT PROMOTER Scrub, Fede Coleman CONCERT PROMOTER Monitor Procedures Performed Left Heart Cath w/or w/o Coronaries [id number] [facility] Hemostasis w/ Mynx Procedure Narrative A [place] 6 FR sheath was inserted into the RFA. Coronary angiography was performed using coronary diagnostic catheters. The right coronary system was accessed and visualized with a JR4 catheter. The left coronary system was accessed and visualized with a JL4 catheter. The left ventricle was accessed and visualized with a PiG catheter. The patient tolerated the procedure well and there were no complications associated with the procedure. Intraoperative Conscious Sedation Sedation start time: 1517 Case end Time: 1530 Fluoro Time: 2.3 minutes Dose: DAP 972904 cGycm2 1629 mGy Contrast Type and Amount: Visipaque 100 ml Coronary Angiography The patient's coronary anatomy is co- dominant. Diagnostic Cath Left Main The left main coronary artery is normal and bifurcates into a left anterior descending and circumflex coronary artery. LAD The left anterior descending coronary artery has a widely patent stent in the proximal to midportion. There is mild 10% and 20% plaquing in the mid [place] [address] CARDIAC CATH REPORT Name: RANDEE HUMPHRIES Room: [address] MCampbellR.#: [id number] Admission: 12/06/19 Attend Phys: Cas Khoury MD Discharge: Date of : 41 Report #: [id number] Diagonal 1 The first diagonal branch is normal. Diagonal 2 The second diagonal branch is normal. Diagonal 3 The third diagonal branch is normal. Circumflex The circumflex coronary artery exhibits minimal 10% plaquing in the proximal and midportion. Distally the vessel appears normal. OM1 The first obtuse marginal branch is normal. OM2 The second obtuse marginal branch is normal. OM3 The third obtuse marginal branch is normal. L ANTWON A left posterolateral branch off of the circumflex is normal. Right Coronary The right coronary artery has a widely patent stent at the ostium. There is moderate 30% plaquing in the midportion. The distal vessel appears free of significant disease. R PDA A high rising PDA has a 50% ostial stenosis. RPLV The right posterior lateral LV branch appears normal. Left Ventriculography Left Ventriculography was not performed. Hemodynamics The aortic pressure is 168/66 mmHg with a mean of 105 mmHg. The left ventricular pressure is 140/14 mmHg with a mean of mmHg. The left ventricular end diastolic pressure is 25 mmHg. Conclusion 1. Widely patent stents in the proximal to mid LAD and ostial circumflex. 2. Moderately elevated left ventricular end-diastolic pressure consistent with acute diastolic heart failure. 3. Nonocclusive disease noted as listed above. Recommendations 1. Continue medical management and aggressive risk factor modification. <ELECTRONICALLY SIGNED> By: Cas Khoury MD, FACC 12/06/191829 29 29Micmahad hKoury MD, FACC /INF
--- NOTE | 2019-12-06 18:31 | CON ---
[address] [address] CONSULTATION Name: RANDEE HUMPHRIES Room: [address] M.R.#: [id number] Admission: 12/06/19 Attend Phys: Cas Khoury MD Discharge: Date of : 41 Report #: [id number] THIS REPORT FOR: //name// cc: Liang Monroe MD, Matthew W. MD ~ THIS REPORT FOR: //name// CC: Liang Deluca INDICATION: Recurrent chest discomfort consistent with angina. HISTORY OF PRESENT ILLNESS: The patient is a very pleasant 74-year-old gentleman well known to myself. He has a history of coronary artery disease. Last month, he had percutaneous coronary intervention and drug-eluting stent placement to the proximal to mid LAD and the ostial right coronary artery. At that time, no other hemodynamically significant stenoses were noted. He has been having intermittent chest discomfort for the last several days. Attempts at medical management have failed. The patient returns to the Emergency Room with continued pain intermittently since 04:30 this morning. The pain is midsternal in character and radiates towards the left shoulder. He has associated shortness of breath, but no diaphoresis. He was started on isosorbide mononitrate with the dose increased to 120 mg daily without relief of pain. He remains on Xarelto and Effient. He is not having bleeding problems. PAST MEDICAL HISTORY: 1. Coronary artery disease. 2. Sick sinus syndrome with paroxysmal atrial fibrillation/flutter. 3. Hypertension. 4. Dyslipidemia. 5. Obstructive sleep apnea. 6. Type 2 diabetes mellitus. 7. Remote history of pulmonary embolism. 8. Urethral strictures. 9. Back surgery on multiple occasions. 10. Cholecystectomy. 11. Hip surgery. 12. Knee surgery. 13. Neck surgery. 14. Prostate surgery with radiation for prostate cancer. 15. Total shoulder arthroplasty. 16. Trigger finger release. ALLERGIES: [place] [address] CONSULTATION Name: RANDEE HUMPHRIES Room: [address] M.R.#: [id number] Admission: 12/06/19 Attend Phys: Cas Khoury MD Discharge: Date of : 41 Report #: [id number] HOME MEDICATIONS: Allopurinol 300 mg daily, amlodipine 10 mg daily, Benadryl 25 mg q.4 hours p.r.n., Flonase nasal spray daily, furosemide 40 mg b.i.d., gabapentin 300 mg t.i.d., hydroxyzine 25 mg daily, Imdur 120 mg daily, losartan 50 mg daily, melatonin 10 mg as needed, morphine sulfate 15 mg t.i.d. p.r.n., Macrodantin 50 mg every week, Nitrostat sublingual p.r.n., Protonix 40 mg daily, potassium chloride 10 mEq 2 tablets daily, Effient 10 mg daily, Xarelto 20 mg daily. FAMILY HISTORY: Positive for coronary artery disease in the patient's father. The patient's mother had a stroke. SOCIAL HISTORY: The patient quit smoking many years ago. Drinks alcohol rarely. PHYSICAL EXAMINATION: VITAL SIGNS: Stable. Blood pressure was 132/72, pulse is 60 and regular. GENERAL: This is a pleasant gentleman who is not in any distress. Mood and affect appropriate. HEENT: Extraocular muscles intact. Mucous membranes moist. NECK: Shows no jugular venous distention. There are no carotid bruits. CARDIAC: Reveals a regular rhythm without gallop or murmur. CHEST: Reveals clear lung beal without wheezes or rales. ABDOMEN: Reveals normal bowel sounds. Abdomen is soft and nontender. EXTREMITIES: Shows no edema. SKIN: Warm and dry. IMPRESSION AND RECOMMENDATIONS: 1. Chest discomfort consistent with progressive/unstable angina. Proceed to cardiac catheterization lab for elective coronary angiography and left heart catheterization. Consider intervention as warranted. 2. Atrial arrhythmias. The patient is chronically anticoagulated. His rate is adequately controlled. No changes at this time. 3. Hypertension. Blood pressure adequately controlled on current regimen. 4. Dyslipidemia. Continue current statin agent. <ELECTRONICALLY SIGNED> By: Cas Khoury MD, FACC 12/06/19 1831 1425 1441Micmahad Khoury MD, FACC /nt
[2019-12-07 00:27] VITALS: BP 144/59
[2019-12-07 04:00] VITALS: BP 146/70
[2019-12-07 05:54] LABS: CALCIUM 8.4 mg/dL (8.5-10.1); CREATININE 1.1 mg/dL (0.6-1.3); POTASSIUM 3.9 mmol/L (3.5-5.1)
[2019-12-07] MEDS ORDERED: IMDUR 60 MG TAB60 M1 PO (07:38)
[2019-12-07 08:00] VITALS: BP 128/52; BP 143/66
[2019-12-07 13:08] VITALS: BP 128/52
--- NOTE | 2019-12-07 13:39 | NUR ---
Pt is A&O. Resides at home with his . Active and independent. Pt has a bipap at home, but states that he doesn't use it because he can't get use to having it on. No hx of HH or SNF. Pt discharging home today, no needs.
== END 2019-12-07 13:30 | disposition home or self-care (01) ==
LOC: M.CL 10:40 → M.ERS 10:40 → M.TBA-ER 15:58 → M.2W 15:58
PROVIDERS: Personal Emergency Response Attendant; ADMIT Internal Medicine Cardiovascular Disease; ATTEND Internal Medicine Cardiovascular Disease
DX: I25.110 Atherosclerotic heart disease of native coronary artery with unstable angina pectoris (principal); I10 Essential (primary) hypertension; E78.5 Hyperlipidemia, unspecified; E11.9 Type 2 diabetes mellitus without complications; G47.33 Obstructive sleep apnea (adult) (pediatric); I11.0 Hypertensive heart disease with heart failure; I50.33 Acute on chronic diastolic (congestive) heart failure; Z79.01 Long term (current) use of anticoagulants; Z90.49 Acquired absence of other specified parts of digestive tract; Z86.711 Personal history of pulmonary embolism; Z90.89 Acquired absence of other organs; Z79.899 Other long term (current) drug therapy

== ENCOUNTER → 2019-12-31 | Outpatient (CLI) | payer BC ==
[~2019-12-31] MED LIST changes: +IMDUR 60 MG TAB60 M1 PO
[2019-12-31 15:13] LABS: ABSOLUTE EOSINOPHILS 0.1 thou/uL (0.0-0.7); ABSOLUTE LYMPHOCYTES 2.2 thou/uL (0.8-5.3); ABSOLUTE MONOCYTES 0.9 thou/uL (0.0-1.2); ABSOLUTE NEUTROPHILS 5.7 thou/uL (1.6-8.1); BASOPHILS 0.3 %; EOSINOPHILS 1.6 %; HEMATOCRIT 36.7 % (42.0-52.0); HEMOGLOBIN 12.3 gm/dL (14.0-18.0); MCH 28.3 pg (26.0-34.0); MCHC 33.6 g/dL (28.0-37.0); MCV 84.2 fL (80.0-100.0); MONOCYTES 10.2 %; MPV 8.6 fl. (7.2-11.1); NUCLEATED RBCS 0 /100WBC; PLATELET COUNT* 204 thou/uL (150-400); POLYS 63.9 %; RBC 4.35 mil/uL (4.50-6.00); RDW-CV 15.7 % (10.5-14.5)
== END ==
LOC: M.LAB 14:59
PROVIDERS: ATTEND Internal Medicine Gastroenterology
DX: K22.70 Barrett's esophagus without dysplasia (principal)

== ENCOUNTER → 2020-01-23 | Outpatient (CLI) | payer BC ==
[2020-01-23 11:51] LABS: ALBUMIN 3.5 g/dL (3.4-5.0); ALKALINE PHOSPHATASE 86 U/L (46-116); CHOLESTEROL 141 mg/dL (<200); DIRECT BILIRUBIN 0.1 mg/dL (<0.1-0.3); HDL CHOLESTEROL 53 mg/dL (>40); LDL CHOLESTEROL 69 mg/dL (<100); SERUM ASSESSMENT Clear; SGOT 18 U/L (15-37); SGPT 22 U/L (30-65); TC:HDL 2.7 Ratio (Not establshd); TOTAL BILIRUBIN 0.2 mg/dL (<0.1-1.0); TOTAL PROTEIN 6.9 g/dL (6.4-8.2); TRIGLYCERIDE 97 mg/dL (<150); VLDL 19 mg/dL (<40)
== END ==
LOC: M.LAB 11:24
PROVIDERS: ATTEND Nurse Practitioner
DX: E78.2 Mixed hyperlipidemia (principal)

== ENCOUNTER 2020-06-19 11:18 | Observation (INO) | payer BC ==
[~2020-06-19] VITALS: Ht 185.4 cm; Wt 120.2 kg
[2020-06-19] VITALS (13 sets, daily range): BP systolic 134–170; BP diastolic 72–85
[~2020-06-19 11:18] MED LIST changes: +ISOSORBIDE MON120 MG PO; +JARDIANCE10 MG PO; +ROSUVASTATIN CA20 MG PO; +VOLTAREN GEL 1100 G1 TOP
[2020-06-19 12:04] LABS: HEMOGLOBIN 13.9 gm/dL (14.0-18.0); MCH 27.3 pg (26.0-34.0); MPV 8.6 fl. (7.2-11.1); RBC 5.07 mil/uL (4.50-6.00); RDW-CV 17.3 % (10.5-14.5); WBC 9.6 thou/uL (4.0-11.0)
[2020-06-19 12:12] LABS: ANION GAP 11 mmol/L (7-16); BUN 17 mg/dL (7-18); CALCIUM 8.9 mg/dL (8.5-10.1); CHLORIDE 101 mmol/L (98-107); CO2 25 mmol/L (21-32); GLUCOSE 149 mg/dL (70-99); POTASSIUM 4.2 mmol/L (3.5-5.1); SODIUM 137 mmol/L (136-145)
[2020-06-19 12:16] LABS: ALBUMIN 3.7 g/dL (3.4-5.0); ALKALINE PHOSPHATASE 90 U/L (46-116); APTT 25.6 Seconds (25.0-31.3); CHOLESTEROL 160 mg/dL (<200); HDL CHOLESTEROL 58 mg/dL (>40); LDL CHOLESTEROL 88 mg/dL (<100); PROTIME 10.4 Seconds (9.20-11.50); SERUM ASSESSMENT Clear; SGOT 21 U/L (15-37); SGPT 25 U/L (30-65); TC:HDL 2.8 Ratio (Not establshd); TOTAL BILIRUBIN 0.3 mg/dL (<0.1-1.0); TOTAL PROTEIN 7.2 g/dL (6.4-8.2); TRIGLYCERIDE 73 mg/dL (<150); VLDL 15 mg/dL (<40)
--- NOTE | 2020-06-19 16:04 | EKG ---
[place] [address] ELECTROCARDIOGRAM REPORT Name: RANDEE HUMPHRIES Room: [address]#: [id number] Admission: 06/19/20 Attend Phys: Cas Khoury, Discharge: Date of : 41 Date of Service: 06/19/20 1252 Report #: [id number] THIS REPORT FOR: //name// [facility] Test Date: 2020-06-19 Test Time: 12:52:54 Pat Name: RANDEE HUMPHRIES Department: Room: [facility] Gender: M Stock Checkerer: : 1945 Requested By: Cas Khoury Order Number: [id number] Verenice MD: Cas Khoury Measurements Intervals [place] Rate: 65 P: [place]: QRS: -5 QRSD: 106 T: 17 QT: 439 QTc: 457 Interpretive Statements Atrial fibrillation Compared to ECG 12/06/2019 10:45:16 Intraventricular conduction delay no longer present T-wave abnormality no longer present Electronically Signed On 06-19-2020 16:03:45 VIDEO EDITING INTERN by Cas Khoury [email or web address] <ELECTRONICALLY SIGNED> By: Cas Khoury MD, FACC 06/19/20 1603 1252 1252 Cas Khoury MD, FAC /EPI
--- NOTE | 2020-06-19 16:06 | EKG ---
[place] [address] ELECTROCARDIOGRAM REPORT Name: RANDEE HUMPHRIES Room: [address]#: [id number] Admission: 06/19/20 Attend Phys: Cas Khoury, Discharge: Date of : 41 Date of Service: 06/19/20 1504 Report #: [id number] THIS REPORT FOR: //name// [facility] Test Date: 2020-06-19 Test Time: 15:04:53 Pat Name: RANDEE HUMPHRIES Department: Room: [facility] Gender: M Mechanical Supervisor: : 1945 Requested By: Cas Khoury Order Number: [id number] Verenice MD: Cas Khoury Measurements Intervals [place] Rate: 75 P: -43 MA: 67 QRS: 8 QRSD: 100 T: 29 QT: 418 QTc: 467 Interpretive Statements Sinus rhythm Compared to ECG 06/19/2020 12:52:54 Atrial fibrillation no longer present Electronically Signed On 06-19-2020 16:06:23 SUPPLY CHAIN ANALYST by Cas Khoury [email or web address] <ELECTRONICALLY SIGNED> By: Cas Khoury MD, [facility] 06/19/20 1606 1504 1504 Cas Khoury MD, [facility] /EPI
--- NOTE | 2020-06-19 16:39 | CARD ---
[address] [address] CARDIAC CATH REPORT Name: RANDEE HUMPHRIES Room: [address] M.R.#: [id number] Admission: 06/19/20 Attend Phys: Cas Khoury MD Discharge: Date of : 41 Report #: [id number] THIS REPORT FOR: cc: Liang Monroe MD, Matthew W. MD ~ Fer Cornelius MD [facility] APPROVED REPORT Study performed: 06/19/2020 12:49:57 Patient Details Patient Status: Out-Patient Room #: The patient is a 75 year-old male Event Personnel Cas Khoury Pneumatic Tube Fitter, Waleska Underwood RN Legislative Assistant, Fabiola Owen RTR Monitor, Dena Pop RTR Scrub, Fer Cornelius Watchmaker Apprentice Procedures Performed Art Access - R femoral artery Left Heart Cath w/or w/o Coronaries LOR[facility] Place w/wo Plasty Single LAD Hemostasis w/ Angioseal Indication Unstable angina Risk Factors Hypercholesterolemia, Hypertension Admission/Lab Medications/Medications given during procedure Oxygen Nasal cannula 2 l per min, Lidocaine Subcut 20 ml, Midazolam (Versed) IV 1 mg, Fentanyl IV 25 mcg, Angiomax IV 18 ml, Angiomax Drip IV 42.14 ml per hr, Effient PO 60 mg, Aspirin PO 81 mg Procedure Narrative The patient was brought electively to the Cardiac Catheterization Laboratory and was prepped and draped in a sterile manner. The right femoral was infiltrated with 2% Lidocaine subcutaneous anesthesia. A [place] 6 FR sheath was inserted into the right femoral artery. Coronary angiography was performed using coronary diagnostic catheters. The right coronary system was accessed and visualized with a Diagnostic 6 Fr JR 4 catheter. The [place] [address] CARDIAC CATH REPORT Name: RANDEE HUMPHRIES [place] Room: [address]#: [id number] Admission: 06/19/20 Attend Phys: Cas Khoury MD Discharge: Date of : 43 Report #: [id number] accessed and visualized with a Diagnostic 6 Fr JL 4 catheter. The left ventricle was accessed and visualized with a Diagnostic 6 Fr Pigtail catheter. Left ventricular/Aortic Valve gradient assessed via catheter pullback. Left ventriculogram was performed in DAVIS projection. Pre-demployment femoral angiogram was performed . Closure device was deployed with a Fr Angioseal STS 6Fr. The patient tolerated the procedure well and there were no complications associated with the procedure. There was no hematoma. Intraoperative Conscious Sedation Sedation start time: 13:07 Case end Time: 14:14 Fentanyl 25 mcg Versed 1 mg Fluoro Time: 20 minutes Dose: DAP 380476 cGycm2 5156 mGy Contrast Type and Amount: Visipaque 420 ml Coronary Angiography The patient's coronary anatomy is right dominant. Diagnostic Cath Left Main 0% narrowing LAD 90% ostial proximal LAD stenosis with significant associated calcification and 40% mid LAD narrowing Circumflex 30% mid vessel narrowing Right Coronary 90% ostial proximal narrowing with 40% mid vessel narrowing Left Ventriculography The left ventricle is normal in size with normal contractility. The left ventricular ejection fraction is estimated to be 65%. Left ventricular wall motion abnormalities are not present. There is no mitral insufficiency. Hemodynamics The aortic pressure is 128/42 mmHg with a mean of 64 mmHg. The left ventricular pressure is 137/4 mmHg with a mean of mmHg. The left ventricular end diastolic pressure is 15 mmHg. There was no gradient across the aortic valve upon pullback. PCI Technique Lesion Anticoagulation was achieved with Angiomax Drip. Patient was preloaded with Angiomax IV 18 ml. Percutaneous coronary intervention was performed on the proximal left [place] [address] CARDIAC CATH REPORT Name: RANDEE HUMPHRIES Room: [address]#: [id number] Admission: 06/19/20 Attend Phys: Cas Khoury MD Discharge: Date of : 41 Report #: [id number] segment. The lesion stenosis prior to intervention was 90% with ANDRY 3 flow. A 6F XB LAD 4.0 Guide Catheter was used to engage the left ostium. A IG: BMW 190cm Interventional Guidewire was used to cross the lesion. BALLOON DILATION A Balloon catheter NC Trek RX 2.75 X 12 was inserted and inflated up to 14.00atm for 19seconds. Additional Inflation: 18.00atm for 13seconds. Additional Inflation: 18.00atm for 11seconds. A balloon catheter NC Trek RX 3.0 x 12 was inserted and inflated up to 14 ALESSANDRA for 7 seconds,18 ALESSANDRA for 14 seconds, and 18 ALESSANDRA for 11 seconds. STENT DEPLOYMENT A drug-eluting stent [place] RX Stent 3.0X18mm was inserted and inflated up to 14.00atm for 14seconds. Additional Inflation: 15.00atm for 11seconds. A drug-eluting stent [place] RX stent 3.0 x 8mm was inserted and inflated up to 15 ALESSANDRA for 13 seconds and 18 ALESSANDRA for 11 seconds. POST STENT DEPLOYMENT BALLOON DILATION A Balloon catheter NC Trek RX 3.25X8 was inserted and inflated up to 16.00atm for 10seconds. Additional Inflation: 18.00atm for 7seconds. Additional Inflation: 18.00atm for 8seconds. Final angiography reveals 10 % stenosis with ANDRY 3 flow. COMMENTS The PCI was technically complex by virtue of the ostial LAD location and severe ostial- proximal LAD calcification. This required significant lesion preparation and wiring of the circumflex for protection. This was accomplished prior to deployment of 2 drug-eluting stents in the ostial proximal LAD. Conclusion 1. Severe coronary artery disease characterized by the following: A 90% irregular ostial- proximal calcified LAD stenosis with 40% mid vessel narrowing B 30% narrowing of the midportion of the nondominant though prominent circumflex C dominant right coronary artery with 90% ost[place] [address] CARDIAC CATH REPORT Name: RANDEE HUMPHRIES Room: [address] Carl MCampbellRCampbell#: [id number] Admission: 06/19/20 Attend Phys: Cas Khoury MD Discharge: Date of : 41 Report #: [id number] and 40% mid vessel narrowing 2. Normal left ventricular systolic function, estimated ejection fraction being 65% 3. Minimal elevation of left ventricular end-diastolic pressure rest 4. Successful PCI with deployment of sequential drug-eluting stents at the site of 90% ostial- proximal LAD stenosis with 10% residual narrowing and ANDRY-3 flow to the distal vessel Recommendations Cardiac Risk Reduction Program Aggressive Medical Therapy Medications Administered Aspirin (any) Prasugrel Diagnostic Cath Approved by: Cas Khoury MD Date/Time: 06/19/2020 16:37:14 <ELECTRONICALLY SIGNED> By: Fer Cornelius MD, [facility] 06/19/20 1639 1639 1639Fer Cornelius MD, FACC /INF
--- NOTE | 2020-06-19 20:56 | NUR ---
PT ADMITTED TO ROOM [address] NEUR[address]SYCHOLOGIST[address] ON PROXIMAL LAD THROUGH RIGHT GROIN. VSS ON RA. SR WITH PVCS.DRESSING CDI SITE IS FREE OF BRUISING AND SOFT. PT HAS EXTENSIVE PROSTATE HX AND CONCERNS ADDRESSED ABOUT POSSIBLE INABILITY TO VOID. NEUROPSYCHOLOGIST NURSES TRIED TO PROVIDE URINARY CATHETERIZATION X2 THAT WAS UNSUCCESSFUL R/T STRICTURE IN URETHRA. PT WAS FINALLY ABLE TO VOID IN URINAL AND TWO MORE TIMES AFTER RELEASED FROM BEDREST. SOME BLOOD NOTED. IS TO BRING SELF CATHETERIZATION EQUIPMENT IN FROM HOME IN AM. PT HAS NO COMPLAINTS.PT EDUCATED TO ACTIVITY,DIET AND PLAN OF CARE. NOTHING FURTHER AT THIS TIME.CLWR.WCTM
[2020-06-20] VITALS (13 sets, daily range): BP systolic 99–161; BP diastolic 53–84
[2020-06-20 05:17] LABS: HEMATOCRIT 38.9 % (42.0-52.0); MCH 27.6 pg (26.0-34.0); MCHC 33.4 g/dL (28.0-37.0); MCV 82.7 fL (80.0-100.0); MPV 8.9 fl. (7.2-11.1); RBC 4.7 mil/uL (4.50-6.00); RDW-CV 17.6 % (10.5-14.5); WBC 8.6 thou/uL (4.0-11.0)
[2020-06-20 05:26] LABS: ALBUMIN 3.4 g/dL (3.4-5.0); CALCIUM 8.6 mg/dL (8.5-10.1); CREATININE 0.8 mg/dL (0.6-1.3); TOTAL BILIRUBIN 0.3 mg/dL (<0.1-1.0); TOTAL PROTEIN 6.6 g/dL (6.4-8.2)
--- NOTE | 2020-06-20 09:39 | NUR ---
CM SPOKE TO THE PT TO DISCUSS CM ASSESSMENT. PT A&O, AND INDEPENDENT WITH ADL'S. PT RESIDES AT HOME WITH SPOUSE. PT USES BIPAP AT HOME. PT HAS 0 HX OF HH OR SNF. NO CM D/C PLANNING NEEDS ANTICIPATED. CM WILL REMAIN AVAILABLE TO ASSIST AND FOLLOW NEEDED.
--- NOTE | 2020-06-20 13:02 | EKG ---
[place] [address] ELECTROCARDIOGRAM REPORT Name: RANDEE HUMPHRIES Room: [address]#: [id number] Admission: 06/19/20 Attend Phys: Cas Khoury, Discharge: Date of : 41 Date of Service: 06/20/20 0839 Report #: [id number] THIS REPORT FOR: //name// 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1945 Requested By: Cas Khoury Order Number: [id number] Reading MD: Fer Cornelius Measurements Intervals [place] Rate: 95 P: 53 IN: 226 QRS: 7 QRSD: 101 T: 55 QT: 368 QTc: 463 Interpretive Statements Sinus rhythm Prolonged IN interval Borderline T wave abnormalities Compared to ECG 06/19/2020 15:04:53 First degree AV block now present T-wave abnormality now present Electronically Signed On 06-20-2020 13:02:16 AUDIT PRACTICE INTERN by Fer Cornelius [email or web address] <ELECTRONICALLY SIGNED> By: Fer Cornelius MD, [facility] 06/20/20 1302 0839 0839 Fer Cornelius MD, [facility] /EPI
--- NOTE | 2020-06-20 21:27 | NUR ---
VSS. PT DENIES CHEST PAIN, SOA, AND OTHER DISCOMFORTS THROUGHOUT THE DAY. 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 RETURNED TO 229 @ 1715, R GROIN DRSG WITH MINIMAL RED DRAINAGE, NO PALPABLE HEMATOMA. PT COOPERATIVE WITH INSTRUCTED IMMOBILIZATION. CALL LIGHT WITHIN REACH.
[2020-06-21 05:03] VITALS: BP 139/66
[2020-06-21 06:26] LABS: HEMATOCRIT 40.1 % (42.0-52.0); HEMOGLOBIN 13.2 gm/dL (14.0-18.0); MCH 27.2 pg (26.0-34.0); MCV 82.6 fL (80.0-100.0); MPV 8.7 fl. (7.2-11.1); RBC 4.86 mil/uL (4.50-6.00); RDW-CV 17.5 % (10.5-14.5); WBC 4.4 thou/uL (4.0-11.0)
[2020-06-21 06:37] LABS: ALBUMIN 3.2 g/dL (3.4-5.0); CALCIUM 8.5 mg/dL (8.5-10.1); CREATININE 0.8 mg/dL (0.6-1.3); POTASSIUM 3.5 mmol/L (3.5-5.1); TOTAL BILIRUBIN 0.3 mg/dL (<0.1-1.0); TOTAL PROTEIN 6.4 g/dL (6.4-8.2)
[2020-06-21 08:00] VITALS: BP 149/68
--- NOTE | 2020-06-21 09:35 | NUR ---
RECEIVED REPORT AROUND 0715. ASSUMED CARE. IV INTACT. HEART MONITOR ATTACHED AT AFIB, CONTROLLED. PT LYING IN BED THIS AM. MEDS GIVEN PER MAR. AT BEDSIDE. PT STATED "NO" TO ANY PAIN. VS AND ASSESSMENT CHARTED. CALL LIGHT WITHIN REACH. WILL CONTINUE TO MONITOR.
[2020-06-21] MEDS ORDERED: EFFIENT10 MG PO (11:29)
[2020-06-21 12:16] VITALS: BP 149/68
--- NOTE | 2020-06-21 16:28 | NUR ---
RECEIVED DISCHARGE ORDERS. PACKET GONE OVER WITH PT AND . COMMUNICATED UNDERSTANDING. IV TAKEN OUT. HEART MONITOR OFF. PT LEFT UNIT VIA WHEELCHAIR WITH NURSING STAFF, , AND ALL BELONGINGS AT 1235.
--- NOTE | 2020-06-22 11:35 | D ---
[address] [address] DISCHARGE SUMMARY Name: RANDEE HUMPHRIES [place] Room: [address] Carl Guardado#: [id number] Admission: 06/19/20 Attend Phys: Cas Khoury MD Discharge: 06/21/20 Date of : 41 Report #: [id number] THIS REPORT FOR: cc: Liang Monroe MD, Matthew W. MD ~ Cas Khoury MD [facility] DISCHARGE DIAGNOSES: 1. Unstable angina. 2. Coronary artery disease. 3. Essential hypertension. 4. Type 2 diabetes mellitus. 5. Paroxysmal atrial fibrillation. PROCEDURES DURING THE HOSPITALIZATION: 1. Left heart catheterization. 2. Coronary angiography. 3. Percutaneous coronary intervention to the proximal left anterior descending coronary artery and the ostial right coronary artery. HOSPITAL COURSE: The patient was brought to the hospital electively with complaints of increasing chest pain in a pattern consistent with unstable angina. Angiography revealed high-grade stenoses of the proximal left anterior descending coronary artery for which he had intervention with a drug-eluting stent placed. He had excellent results. He was noted at that time to also have ostial right coronary artery in-stent restenosis. The following day, the patient underwent a second intervention with percutaneous coronary intervention and drug-eluting stent placement to the proximal right coronary artery without complication. The patient tolerated both procedures well. The patient was placed on Effient as antiplatelet therapy in addition to his chronic anticoagulation for his paroxysmal atrial fibrillation. The patient tolerated hospitalization without complication as being discharged uneventfully. DISCHARGE MEDICATIONS: Will include Effient 10 mg daily, allopurinol 300 mg daily, morphine extended release 15 mg as directed, losartan 50 mg daily, Benadryl 25 mg p.r.n., nitrofurantoin 50 mg weekly, Protonix 40 mg daily, Flonase nasal spray daily, hydroxyzine 25 mg daily, melatonin 10 mg at bedtime, furosemide 40 mg p.o. daily p.r.n., gabapentin 300 mg t.i.d., Xarelto 20 mg daily, Nitrostat sublingual p.r.n., Crestor 20 mg at bedtime, isosorbide mononitrate 120 mg daily, Jardiance 10 mg daily, Voltaren gel topically as directed, amlodipine 5 [place] [address] DISCHARGE SUMMARY Name: IZAIAHRenoRANDEE Roslyn [address]#: [id number] Admission: 06/19/20 Attend Phys: Cas Khoury MD Discharge: 06/21/20 Date of : 41 Report #: [id number] DISPOSITION: The patient will follow up with Cardiology in approximately 4 weeks. <ELECTRONICALLY SIGNED> By: Cas Khoury MD, [facility] 06/22/20 [address] [place], [place] [address]jenaro Khoury MD, MARICELC /nt
--- NOTE | 2020-06-23 10:21 | EKG ---
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1945 Requested By: Cas Khoury Order Number: [id number] Reading MD: Luis Castillo Measurements Intervals [place] Rate: 73 P: 0 NH: 66 QRS: -12 QRSD: 104 T: 15 QT: 405 QTc: 447 Interpretive Statements Sinus rhythm Atrial premature complexes Borderline T wave abnormalities Compared to ECG 06/20/2020 08:39:12 Atrial premature complex(es) now present T-wave abnormality still present Electronically Signed On 06-23-2020 10:20:59 BUTT PRESSER by Luis Castillo [email or web address] <ELECTRONICALLY SIGNED> By: Luis Castillo MD, [facility] 06/23/20 1020 1112 1112 Luis Castillo MD, [facility] /EPI
--- NOTE | 2020-06-23 16:54 | CARD ---
[address] [address] CARDIAC CATH REPORT Name: IZAIAHRenoRANDEE Roslyn Room: [address] Carl M.Thomas#: [id number] Admission: 06/19/20 Attend Phys: Cas Khoury MD Discharge: 06/21/20 Date of : 41 Report #: [id number] THIS REPORT FOR: cc: Liang Monroe MD, Matthew W. MD ~ Fer Cornelius MD [facility] APPROVED REPORT Study performed: 06/20/2020 15:08:49 Patient Details Patient Status: In-Patient Room #: The patient is a 75 year-old male Event Personnel Cas Khoury Poultry Farmer Meat, Brant Barboza RN RN, Fer Cornelius Automotive Service Consultant, Fede Coleman Scrub, Dena Pop RTR Monitor Procedures Performed Art Access - R femoral artery* Coronary Angiography Only [id number] CORANG LORNE Place w/wo Plasty Single RCA [id number] Hemostasis w/ Angioseal Procedure Narrative The patient was brought electively to the Cardiac Catheterization Laboratory and was prepped and draped in a sterile manner. The right femoral was infiltrated with subcutaneous anesthesia. A [place] 6 FR sheath was inserted into the right femoral artery. Coronary angiography was performed using coronary diagnostic catheters. The right coronary system was accessed and visualized with a Diagnostic JR4 catheter. The left coronary system was accessed and visualized with a Diagnostic JL4 catheter. The patient tolerated the procedure well and there were no complications associated with the procedure. There was no hematoma. Intraoperative Conscious Sedation Sedation start time: 15:59 Case end Time: 16:44 Fentanyl 0.0 mcg Versed 0.0 mg Fluoro Time: 15.4 minutes Dose: DAP [id number] cGycm2 2348 mGy Contrast Type and Amount: Visipaque [address] [place] [address] CARDIAC CATH REPORT Name: RANDEE HUMPHRIES Room: [address]#: [id number] Admission: 06/19/20 Attend Phys: Cas Khoury MD Discharge: 06/21/20 Date of : 41 Report #: [id number] Diagnostic Cath Left Main The left main coronary artery is normal and bifurcates into a left anterior descending and circumflex coronary artery. LAD There is a widely patent stent in the proximal left anterior sending coronary artery. There is 40% mid vessel narrowing. The distal vessel is free of significant disease. The distal left anterior descending coronary artery wraps around the apex. Diagonal 1 The first diagonal branch appears free of significant disease. Diagonal 2 A small second diagonal branch appears free of significant disease. Diagonal 3 A small third diagonal branch appears free of significant disease. Circumflex The circumflex coronary artery appears to have a minimal 30% narrowing in the midportion. OM1 A moderate-sized first obtuse marginal branch appears normal. OM2 A small in caliber bifurcating second obtuse marginal branch appears normal. OM3 A moderate in caliber third obtuse marginal branch appears normal. Right Coronary There is 90% in-stent restenosis noted at the ostium of the right coronary artery. There is approximately 20 to 30% narrowing in the mid vessel. R PDA The right PDA appears free of significant disease. RPLV The right posterior lateral LV branch appears free of significant disease. Left Ventriculography Left Ventriculography was not performed. Hemodynamics The aortic pressure is 161/66 mmHg with a mean of 105 mmHg. PCI Technique Lesion Anticoagulation was achieved with Angiomax. Percutaneous coronary intervention was performed on the proximal right coronary artery. The lesion stenosis prior to intervention was 90% with ANDRY 3 flow. A 6F 3DRC Guide Catheter was used to engage the ostium. A IG: BMW 190cm Interventional Guidewire was used to cross the lesion. BALLOON DILATION A Balloon catheter Mini Trek RX 2.0 X 12 was inserted and inflated up to 10.00atm for 14seconds. Additional Inflation: 12.00[place] [address] CARDIAC CATH REPORT Name: RANDEE HUMPHRIES Room: [address] Carl M.RCampbell#: [id number] Admission: 06/19/20 Attend Phys: Cas Khoury MD Discharge: 06/21/20 Date of : 41 Report #: [id number] 13seconds. Additional Inflation: 18.00atm for 10seconds. A Balloon Catheter NC Trek RX 2.25x12 was inserted and inflated up to 14 [place] for 9 sec; Additional inflation 14 [place]/8sec; 16atm/7 sec; 18 [place]/6sec STENT DEPLOYMENT A drug-eluting stent Darryn RX Stent 2.15E21mr was inserted and inflated up to 10.00atm for 9seconds. Additional Inflation: 14.00atm for 4seconds. Additional Inflation: 14.00atm for 5seconds. POST STENT DEPLOYMENT BALLOON DILATION Additional Inflation: 18.00atm for 11seconds. Additional Inflation: 19.00atm for 4seconds. Final angiography reveals 0 % stenosis with ANDRY 3 flow. COMMENTS The PCI to the ostial proximal right coronary artery was technically complex by virtue of the aorto- ostial location and severe calcification at that site. Conclusion 1. Widely patent recently placed stents of the proximal left anterior descending coronary artery. 2. Significant 90% in-stent restenosis in the ostium of the right coronary artery. 3. No other occlusive disease noted. 4. Successful PCI with deployment of sequential drug-eluting stents at the site of 90% aorto- ostial calcified proximal right coronary stenosis with 0% residual narrowing and ANDRY-3 flow to the distal vessel Recommendations Cardiac Risk Reduction Program 1. Percutaneous coronary intervention to the ostium of the right coronary artery. 2. Continue [place] [address] CARDIAC CATH REPORT Name: RANDEE HUMPHRIES Room: [address] Carl Guardado#: [id number] Admission: 06/19/20 Attend Phys: Cas Khoury MD Discharge: 06/21/20 Date of : 41 Report #: [id number] Diagnostic Cath Approved by: Cas Khoury MD Date/Time: 06/23/2020 16:52:54 <ELECTRONICALLY SIGNED> By: Fer Cornelius MD, FACC 06/23/201652 52 52Jobean Cornelius MD, FACC /INF
== END 2020-06-21 12:35 | disposition home or self-care (01) ==
LOC: M.CL 11:18 → M.TBA-CV 13:37 → M.2W 13:37
PROVIDERS: ADMIT Internal Medicine Cardiovascular Disease; ATTEND Internal Medicine Cardiovascular Disease
DX: I25.110 Atherosclerotic heart disease of native coronary artery with unstable angina pectoris (principal); I10 Essential (primary) hypertension; E11.9 Type 2 diabetes mellitus without complications; E78.5 Hyperlipidemia, unspecified; I48.0 Paroxysmal atrial fibrillation; Z79.82 Long term (current) use of aspirin; Z79.899 Other long term (current) drug therapy; Z20.828 Contact with and (suspected) exposure to other viral communicable diseases

== ENCOUNTER → 2020-07-10 | Outpatient (CLI) | payer BC | LOC: M.ULTRA 13:47 | PROVIDERS: ATTEND Internal Medicine Cardiovascular Disease | DX: I25.110 Atherosclerotic heart disease of native coronary artery with unstable angina pectoris (principal) ==

== ENCOUNTER → 2021-06-29 | Outpatient (CLI) | payer BC | LOC: M.MRI 08:14 | PROVIDERS: ATTEND Physician Assistant | DX: M48.02 Spinal stenosis, cervical region (principal); M50.23 Other cervical disc displacement, cervicothoracic region; M47.813 Spondylosis without myelopathy or radiculopathy, cervicothoracic region ==